=== PATIENT | female | born 1985 | race African-American/Black ===

== ENCOUNTER 2018-12-08 19:04 | Emergency (ER) | payer SELFPAY ==
--- NOTE | 2018-12-08 20:56 | ER ---
Nurse's Notes [facility] Name: Sushma Hastings Age: 33 yrs Sex: Female : 1985 Arrival Date: 12/08/2018 Time: 19:14 Bed 12 Private MD: Diagnosis: Allergic contact dermatitis due to food in contact with the skin Presentation: 12/08 19:24 Presenting complaint: Patient states: she was exposed to some type of "lint" at her mother's house and she developed a rash which ferreira and leaves bumps on her skin. Transition of care: patient was not received from another setting of care. Onset of symptoms was November 28, 2018. Risk Assessment: Do you want to hurt yourself or someone else? Patient reports no desire to harm self or others. Initial Sepsis Screen: Does the patient meet any 2 criteria? No. Patient's initial sepsis screen is negative. Does the patient have a suspected source of infection? No. Patient's initial sepsis screen is negative. Care prior to arrival: None. 19:24 Method Of Arrival: Ambulatory 19:24 Acuity: JEFFY 5 19:28 Note pt states it "feels like their are bugs under my skin". Triage Assessment: 21:14 Bite description: no apparent bite. Bite description: bite is defer to Dr mcleod by an ls4 unknown animal, no apparent bite , animal information: vaccination(s) is not applicable. General: Appears slender, unkempt, Behavior is agitated, anxious, fussy, restless, Reports rash and dry lips. Pain: Denies pain. Neuro: Level of Consciousness is awake, alert, obeys commands. Respiratory: Airway is patent Respiratory effort is even, unlabored. 21:17 Bite description: bite sustained to generalized. 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 - Social history:: Smoking status: Patient uses tobacco products, smokes one-half pack cigarettes per day, Patient/guardian denies using alcohol, street drugs, The patient lives with family. - Ebola Screening: : No symptoms or risks identified at this time. - Family history:: not pertinent. Screenin:13 Abuse screen: Denies threats or abuse. Denies injuries from another. Nutritional ls4 screening: No deficits noted. Tuberculosis screening: No symptoms or risk factors identified. Fall Risk None identified. Assessment: 21:16 Derm: Skin various raised bumps Skin is dry, Skin is pink, warm \\T\\ dry. ls4 Vital Signs: 19:26 BP 144 / 95; Pulse 87; Resp 16 S; Temp 98.4(O); Pulse Ox 100% on R/A; Weight 56.7 kg bb (R); Height 5 ft. 4 in. (162.56 cm) (R); Pain 8/10; 19:26 Body Mass Index 21.46 (56.70 kg, 162.56 cm) bb ED Course: 19:14 Patient arrived in ED. 19:26 Triage completed. 19:26 Arm band placed on Patient placed in waiting room, Patient notified of wait time. 19:52 Nuha Travis, RN is Primary Nurse. ls4 20:00 Patient has correct armband on for positive identification. Placed in gown. Bed in low ls4 position. Call light in reach. Side rails up X 1. 20:00 No provider procedures requiring assistance completed. Patient did not have IV access ls4 during this emergency room visit. 20:08 Chris Loyd MD is Attending Physician. garrick Administered Medications: No medications were administered Outcome: 20:54 Discharge ordered by . maSukumar 21:17 Discharged to home ambulatory, with family. ls4 21:17 Condition: stable 21:17 Discharge instructions given to patient, Instructed on discharge instructions, follow up and referral plans. medication usage, Demonstrated understanding of instructions, follow-up care, medications, Prescriptions given X 1. 21:20 Patient left the ED. ls4 Signatures: Miriam Rodriguez Brenda RN RN Chris Sears MD MD ma2 Stewart, Lisa, RN RN ls4
--- NOTE | 2018-12-08 20:56 | EDPHYS ---
Physician Documentation [facility] Name: Sushma Hastings Age: 33 yrs Sex: Female : 1985 Arrival Date: 12/08/2018 Time: 19:14 Bed 12 Private MD: ED Physician Chris Loyd HPI: 12/08 20:51 This 33 yrs old Black Female presents to ER via Ambulatory with complaints of Rash, ma2 Insect Bite. 20:51 The rash can be described as urticarial. Onset: The symptoms/episode began/occurred ma2 gradually, 2 week(s) ago. Associated signs and symptoms: Pertinent negatives: None. fever, swelling of lips, vomiting. Severity of symptoms: At their worst the symptoms were mild in the emergency department the symptoms are unchanged. Treatment given at home: Benadryl. The patient has experienced similar episodes in the past. 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 - Social history:: Smoking status: Patient uses tobacco products, smokes one-half pack cigarettes per day, Patient/guardian denies using alcohol, street drugs, The patient lives with family. - Ebola Screening: : No symptoms or risks identified at this time. - Family history:: not pertinent. ROS: 20:51 Constitutional: Negative for fever, chills, and weight loss. ma2 20:51 Skin: Positive for itching, Negative for avulsion, cellulitis, discoloration, pallor, swelling. 20:51 All other systems are negative. Exam: 20:51 Constitutional: This is a well developed, well nourished patient who is awake, alert, ma2 and in no acute distress. Chest/axilla: Normal chest wall appearance and motion. Nontender with no deformity. No lesions are appreciated. Cardiovascular: Regular rate and rhythm with a normal S1 and S2. No gallops, murmurs, or rubs. Normal PMI, no JVD. No pulse deficits. Respiratory: Lungs have equal breath sounds bilaterally, clear to auscultation and percussion. No rales, rhonchi or wheezes noted. No increased work of breathing, no retractions or nasal flaring. Abdomen/GI: Soft, non-tender, with normal bowel sounds. No distension or tympany. No guarding or rebound. No evidence of tenderness throughout. Skin: Warm, dry with normal turgor. Normal color with no rashes, no lesions, and no evidence of cellulitis. MS/ Extremity: Pulses equal, no cyanosis. Neurovascular intact. Full, normal range of motion. Neuro: Awake and alert, GCS 15, oriented to person, place, time, and situation. Cranial nerves II-XII grossly intact. Motor strength 5/5 in all extremities. Sensory grossly intact. Cerebellar exam normal. Normal gait. Vital Signs: 19:26 BP 144 / 95; Pulse 87; Resp 16 S; Temp 98.4(O); Pulse Ox 100% on R/A; Weight 56.7 kg bb (R); Height 5 ft. 4 in. (162.56 cm) (R); Pain 8/10; 19:26 Body Mass Index 21.46 (56.70 kg, 162.56 cm) bb MDM: 20:12 Patient medically screened. ma2 20:51 Differential diagnosis: allergic reaction. Data reviewed: vital signs, nurses notes. ma2 Counseling: I had a detailed discussion with the patient and/or guardian regarding: the historical points, exam findings, and any diagnostic results supporting the discharge/admit diagnosis, the presence of at least one elevated blood pressure reading (>120/80) during this emergency department visit, the need for outpatient follow up. Administered Medications: No medications were administered Disposition: 12/08/18 20:54 Discharged to Home. Impression: Allergic contact dermatitis due to food in contact with the skin. - Condition is Stable. - Discharge Instructions: Rash, Rash, [id number]. - Prescriptions for Benadryl 25 mg Oral Capsule - take 1 capsule by ORAL route every 6 hours As needed; 30 tablet. - Medication Reconciliation Form, Thank You Letter, Antibiotic Education, Prescription Opioid Use form. - Follow up: Private Physician; When: Tomorrow; Reason: If symptoms return, Continuance of care. Signatures: Viri Crandall RN RN bb Chris Loyd MD MD ma2 Nuha Travis RN RN ls4 Corrections: (The following items were deleted from the chart) 21:20 20:54 12/08/2018 20:54 Discharged to Home. Impression: Allergic contact dermatitis due ls4 to food in contact with the skin. Condition is Stable. Discharge Instructions: Skin Tear Care. Prescriptions for Benadryl 25 mg Oral Capsule - take 1 capsule by ORAL route every 6 hours As needed; 30 tablet. and Forms are Medication Reconciliation Form, Thank You Letter, Antibiotic Education, Prescription Opioid Use. Follow up: Private Physician; When: Tomorrow; Reason: If symptoms return, Continuance of care. ma2
== END 2018-12-08 21:20 | disposition home or self-care (01) ==
LOC: ER 19:04
DX: L23.6 Allergic contact dermatitis due to food in contact with the skin (principal); F17.210 Nicotine dependence, cigarettes, uncomplicated
CPT/HCPCS: 99282

== ENCOUNTER 2018-12-23 06:10 | Emergency (ER) | payer SELFPAY ==
--- NOTE | 2018-12-23 06:30 | ER ---
Nurse's Notes [facility] Name: Sushma Hastings Age: 33 yrs Sex: Female : 1985 Arrival Date: 12/23/2018 Time: 06:11 Bed 7 Private MD: Diagnosis: Rash and other nonspecific skin eruption Presentation: 12/23 06:20 Presenting complaint: Patient states: for the past couple weeks she has had bugs biting aa1 her and reports she was seen here and instructed to take benadryl but it's not helping. No obvious rash noted at this time. Pt states, "I can feel them get on me and go inside my skin and it hurts.". Transition of care: patient was not received from another setting of care. Onset of symptoms was November 2018. Risk Assessment: Do you want to hurt yourself or someone else? Patient reports no desire to harm self or others. Initial Sepsis Screen: Does the patient meet any 2 criteria? No. Patient's initial sepsis screen is negative. Does the patient have a suspected source of infection? No. Patient's initial sepsis screen is negative. Care prior to arrival: None. 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 - Social history:: Smoking status: Patient uses tobacco products, smokes one pack cigarettes per day. - Ebola Screening: : No symptoms or risks identified at this time. Screenin:20 Abuse screen: Denies threats or abuse. Denies injuries from another. Nutritional aa1 screening: No deficits noted. Tuberculosis screening: No symptoms or risk factors identified. Fall Risk None identified. Assessment: 06:20 General: Appears in no apparent distress. comfortable, Behavior is calm, cooperative, aa1 appropriate for age. Pain: Complains of pain in right arm and left arm Pain currently is 7 out of 10 on a pain scale. Neuro: Level of Consciousness is awake, alert, obeys commands, Oriented to person, place, time, situation, Moves all extremities. Full function Gait is steady, Speech is normal. Respiratory: Airway is patent Respiratory effort is even, unlabored, Respiratory pattern is regular, symmetrical. GI: No signs and/or symptoms were reported involving the gastrointestinal system. : No signs and/or symptoms were reported regarding the genitourinary system. EENT: No signs and/or symptoms were reported regarding the EENT system. Derm: Skin is intact, is healthy with good turgor, Skin is pink, warm \\T\\ dry. Musculoskeletal: Circulation, motion, and sensation intact. Capillary refill < 3 seconds. Vital Signs: 06:20 BP 145 / 98; Pulse 92; Resp 18; Temp 97.2; Pulse Ox 99% on R/A; Weight 59.42 kg; Height aa1 5 ft. 4 in. (162.56 cm); Pain 7/10; 06:20 Body Mass Index 22.49 (59.42 kg, 162.56 cm) aa1 ED Course: 06:11 Patient arrived in ED. es 06:12 [facility]. kb 06:12 William Mojica MD is Attending Physician. kb 06:20 Arm band placed on right wrist. aa1 06:20 Patient has correct armband on for positive identification. Bed in low position. Call aa1 light in reach. Pulse ox on. NIBP on. 06:20 No provider procedures requiring assistance completed. Patient did not have IV access aa1 during this emergency room visit. 06:26 Erica Jha, RN is Primary Nurse. aa1 06:28 Triage completed. aa1 Administered Medications: No medications were administered Outcome: 06:30 Discharge ordered by . kb 06:32 Discharged to home ambulatory. aa1 06:32 Condition: good 06:32 Discharge instructions given to patient, Instructed on discharge instructions, follow up and referral plans. medication usage, Demonstrated understanding of instructions, follow-up care, medications, Prescriptions given X 1. 06:33 Patient left the ED. aa1 Signatures: Jaimie James FNP-C FNP-Erica Pereyra RN RN aa1 Miriam Rodriguez es
--- NOTE | 2018-12-23 06:30 | EDPHYS ---
Physician Documentation [facility] Name: Sushma Hastings Age: 33 yrs Sex: Female : 1985 Arrival Date: 12/23/2018 Time: 06:11 Bed 7 Private MD: ED Physician William Mojica HPI: 12/23 06:23 This 33 yrs old Black Female presents to ER via Unassigned with complaints of bug bites.kb 06:23 The patient's rash thought to be caused by "lint bugs". The rash is located on the body kb diffusely. Onset: The symptoms/episode began/occurred 2 week(s) ago. Associated signs and symptoms: Pertinent positives: burning sensation, difficulty breathing, fever, nausea, swelling of lips, swelling of throat, swelling of tongue, vomiting, wheezing, Pertinent negatives: itching, Pain. Severity of symptoms: At their worst the symptoms were moderate in the emergency department the symptoms are unchanged. The patient has not experienced similar symptoms in the past. The patient has been recently seen at the [facility] Emergency Department, a couple of weeks ago. Pt reports she has had little "lint bugs" biting her. States they get on her and bury into her skin. States she has pain and itching from that. Brought some "bugs" in a plastic bag as proof because they didn't believe her last time she came. Appears to be lint inside of bag. . 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 - Social history:: Smoking status: Patient uses tobacco products, smokes one pack cigarettes per day. - Ebola Screening: : No symptoms or risks identified at this time. ROS: 06:22 Constitutional: Negative for fever, chills, and weight loss, ENT: Negative for injury, kb pain, and discharge, Neck: Negative for injury, pain, and swelling, Cardiovascular: Negative for chest pain, palpitations, and edema, Respiratory: Negative for shortness of breath, cough, wheezing, and pleuritic chest pain, Abdomen/GI: Negative for abdominal pain, nausea, vomiting, diarrhea, and constipation, Back: Negative for injury and pain, MS/Extremity: Negative for injury and deformity, Skin: Negative for injury, rash, and discoloration, Neuro: Negative for headache, weakness, numbness, tingling, and seizure. Exam: 06:22 Constitutional: This is a well developed, well nourished patient who is awake, alert, kb and in no acute distress. Head/Face: Normocephalic, atraumatic. ENT: Nares patent. No nasal discharge, no septal abnormalities noted. Tympanic membranes are normal and external auditory canals are clear. Oropharynx with no redness, swelling, or masses, exudates, or evidence of obstruction, uvula midline. Mucous membranes moist. Neck: Trachea midline, no thyromegaly or masses palpated, and no cervical lymphadenopathy. Supple, full range of motion without nuchal rigidity, or vertebral point tenderness. No Meningismus. Chest/axilla: Normal chest wall appearance and motion. Nontender with no deformity. No lesions are appreciated. Cardiovascular: Regular rate and rhythm with a normal S1 and S2. No gallops, murmurs, or rubs. Normal PMI, no JVD. No pulse deficits. Respiratory: Lungs have equal breath sounds bilaterally, clear to auscultation and percussion. No rales, rhonchi or wheezes noted. No increased work of breathing, no retractions or nasal flaring. Abdomen/GI: Soft, non-tender, with normal bowel sounds. No distension or tympany. No guarding or rebound. No evidence of tenderness throughout. Skin: Warm, dry with normal turgor. Normal color with no rashes, no lesions, and no evidence of cellulitis. MS/ Extremity: Pulses equal, no cyanosis. Neurovascular intact. Full, normal range of motion. Neuro: Awake and alert, GCS 15, oriented to person, place, time, and situation. Cranial nerves II-XII grossly intact. Motor strength 5/5 in all extremities. Sensory grossly intact. Cerebellar exam normal. Normal gait. Vital Signs: 06:20 BP 145 / 98; Pulse 92; Resp 18; Temp 97.2; Pulse Ox 99% on R/A; Weight 59.42 kg; Height aa1 5 ft. 4 in. (162.56 cm); Pain 7/10; 06:20 Body Mass Index 22.49 (59.42 kg, 162.56 cm) aa1 MDM: 06:12 Patient medically screened. kb 06:23 Data reviewed: vital signs, nurses notes. Data interpreted: Pulse oximetry: on room air kb is 100 %. Interpretation: normal. Counseling: I had a detailed discussion with the patient and/or guardian regarding: the historical points, exam findings, and any diagnostic results supporting the discharge/admit diagnosis, the need for outpatient follow up, a family practitioner, to return to the emergency department if symptoms worsen or persist or if there are any questions or concerns that arise at home. Administered Medications: No medications were administered Disposition: 12/23/18 06:30 Discharged to Home. Impression: Rash and other nonspecific skin eruption. - Condition is Stable. - Discharge Instructions: Insect Bite, [id number], Rash, [id number], Scabies, Adult. - Prescriptions for Elimite 5 % Topical Cream - apply 1 application by TOPICAL route one time Wash after 12 hours.; 60 gram. - Medication Reconciliation Form, Thank You Letter, Antibiotic Education, Prescription Opioid Use form. - Work release form (12/23/18 08:21). kb - Follow up: Emergency Department; When: As needed; Reason: Worsening of condition. Follow up: Private Physician; When: 2 - 3 days; Reason: Recheck today's complaints, Continuance of care, Re-evaluation by your physician. Addendum: 12/24/2018 11:10 Co-signature as Attending Physician, William Mojica MD I agree with the assessment and c aguilar plan of care. Signatures: Jaimie James FNP-C FNP-Erica Pereyra, RN RN aa1 William Mojica MD MD cha Corrections: (The following items were deleted from the chart) 12/23 06:33 06:30 12/23/2018 06:30 Discharged to Home. Impression: Rash and other nonspecific skin aa1 eruption. Condition is Stable. Forms are Medication Reconciliation Form, Thank You Letter, Antibiotic Education, Prescription Opioid Use. Follow up: Emergency Department; When: As needed; Reason: Worsening of condition. Follow up: Private Physician; When: 2 - 3 days; Reason: Recheck today's complaints, Continuance of care, Re-evaluation by your physician. kb
== END 2018-12-23 06:33 | disposition home or self-care (01) ==
LOC: ER 06:10
DX: R21 Rash and other nonspecific skin eruption (principal); F17.210 Nicotine dependence, cigarettes, uncomplicated
CPT/HCPCS: 99283

== ENCOUNTER 2019-03-28 23:32 | Emergency (ER) | payer SELFPAY ==
[2019-03-29] MEDS ORDERED: LEVETIRACETAM 500 MG/5 ML VIAL IV ONE (00:12)
[2019-03-29] MEDS ORDERED: NA CHLORIDE 0.9% 100 ML IV ONE (00:12)
--- NOTE | 2019-03-29 00:35 | EDPHYS ---
Physician Documentation [facility] Name: Sushma Hastings Age: 34 yrs Sex: Female : 1985 Arrival Date: 03/28/2019 Time: 23:35 Bed 3 Private MD: ED Physician Todd Delgado HPI: 03/29 00:03 This 34 yrs old Black Female presents to ER via EMS with complaints of Seizure. ps1 00:03 patient has a history of seizure and reportedly on Keppra. Stopped taking the ps1 medication because she states that she was doing well and thought she was cured. Hasn't taken the medication in months. Patient was BIBEMS for reported seizure and now post ictal. On my evaluation she was AOx3 and appears somnolent but alert. . Historical: - Allergies: 03/28 23:39 No Known Allergies; tl2 - Home Meds: 23:39 unknown seizure med [Active]; tl2 - PMHx: 23:39 Hypertension; Seizures; Glaucoma; tl2 - Immunization history:: Adult Immunizations up to date. - Social history:: Smoking status: Patient uses tobacco products, smokes one-half pack cigarettes per day. - Ebola Screening: : No symptoms or risks identified at this time. ROS: 03/29 00:03 Constitutional: Negative for fever, chills, and weight loss, Eyes: Negative for injury, ps1 pain, redness, and discharge, ENT: Negative for injury, pain, and discharge, Cardiovascular: Negative for chest pain, palpitations, and edema, Respiratory: Negative for shortness of breath, cough, wheezing, and pleuritic chest pain, Abdomen/GI: Negative for abdominal pain, nausea, vomiting, diarrhea, and constipation, MS/Extremity: Negative for injury and deformity, Skin: Negative for injury, rash, and discoloration. Neuro: Positive for seizure activity. Exam: 00:03 Constitutional: This is a well developed, well nourished patient who is awake, alert, ps1 and in no acute distress. Head/Face: Normocephalic, atraumatic. Eyes: Pupils equal round and reactive to light, extra-ocular motions intact. Lids and lashes normal. Conjunctiva and sclera are non-icteric and not injected. Chest/axilla: Normal chest wall appearance and motion. Nontender with no deformity. No lesions are appreciated. Cardiovascular: Regular rate and rhythm. No gallops, murmurs, or rubs. Normal PMI, no JVD. No pulse deficits. Respiratory: Lungs have equal breath sounds bilaterally, clear to auscultation and percussion. No rales, rhonchi or wheezes noted. No increased work of breathing, no retractions or nasal flaring. Abdomen/GI: Soft, non-tender, with normal bowel sounds. No distension or tympany. No guarding or rebound. No evidence of tenderness throughout. MS/ Extremity: Pulses equal, no cyanosis. Neurovascular intact. Full, normal range of motion. Neuro: Awake and alert, GCS 15, oriented to person, place, time, and situation. Cranial nerves II-XII grossly intact. Sensory grossly intact. Psych: Awake, alert, with orientation to person, place and time. Behavior, mood, and affect are within normal limits. Vital Signs: 03/28 23:39 BP 132 / 95; Pulse 88; Resp 18; Temp 98.5(O); Pulse Ox 98% on R/A; Weight 65.77 kg; tl2 Height 5 ft. 6 in. (167.64 cm); Pain 0/10; 03/29 00:54 BP 102 / 64; Pulse 81; Resp 17; Temp 98.3; Pulse Ox 97% ; rv 03/28 23:39 Body Mass Index 23.40 (65.77 kg, 167.64 cm) tl2 [place] Coma Score: 03/28 23:39 Eye Response: spontaneous(4). Verbal Response: oriented(5). Motor Response: obeys tl2 commands(6). Total: 15. MDM: 23:55 Patient medically screened. ps1 03/29 00:35 Data reviewed: vital signs, nurses notes, and as a result, I will discharge patient. ps1 Counseling: I had a detailed discussion with the patient and/or guardian regarding: the historical points, exam findings, and any diagnostic results supporting the discharge/admit diagnosis, the need for outpatient follow up, to return to the emergency department if symptoms worsen or persist or if there are any questions or concerns that arise at home. Administered Medications: 00:03 Drug: Keppra 1000 mg Route: IV; Rate: bolus; Site: left antecubital; aa1 00:54 Follow up: IV Status: Completed infusion; IV Intake: 100ml rv Disposition: 03/29/19 00:34 Discharged to Home. Impression: Recurrent Seizure. - Condition is Stable. - Discharge Instructions: Seizure, Adult. - Prescriptions for Keppra 500 mg Oral Tablet - take 1 tablet by ORAL route every 12 hours; 60 tablet. - Medication Reconciliation Form, Thank You Letter, Antibiotic Education, Prescription Opioid Use form. - Follow up: Private Physician; When: As needed; Reason: Further diagnostic work-up, Recheck today's complaints, Continuance of care, Re-evaluation by your physician. Follow up: Emergency Department; When: As needed; Reason: Worsening of condition. - Problem is an ongoing problem. - Symptoms have improved. Signatures: Erica Talbert RN RN aa1 Miranda Ardon RN RN tl2 Todd Delgado MD MD ps1 Nilesh Weaver RN RN rv Corrections: (The following items were deleted from the chart) 00:55 00:34 03/29/2019 00:34 Discharged to Home. Impression: Recurrent Seizure. Condition is rv Stable. Forms are Medication Reconciliation Form, Thank You Letter, Antibiotic Education, Prescription Opioid Use. Follow up: Private Physician; When: As needed; Reason: Further diagnostic work-up, Recheck today's complaints, Continuance of care, Re-evaluation by your physician. Follow up: Emergency Department; When: As needed; Reason: Worsening of condition. Problem is an ongoing problem. Symptoms have improved. ps1
--- NOTE | 2019-03-29 00:35 | ER ---
Nurse's Notes [facility] Name: Sushma Hastings Age: 34 yrs Sex: Female : 1985 Arrival Date: 03/28/2019 Time: 23:35 Bed 3 Private MD: Diagnosis: Recurrent Seizure Presentation: 03/28 23:36 Presenting complaint: EMS states: Witnessed seizure, twitching in L shoulder, no LOC. tl2 Pt was confused but remained AOx3 post seizure. EMS gave 2 mg ativan, pt became AOx4 and more alert. Pt is awake but drowsy, AOx4 but slow to answer. Transition of care: patient was not received from another setting of care. Onset of symptoms was March 28, 2019 at 23:00. Risk Assessment: Do you want to hurt yourself or someone else? Patient reports no desire to harm self or others. Initial Sepsis Screen: Does the patient meet any 2 criteria? No. Patient's initial sepsis screen is negative. Does the patient have a suspected source of infection? No. Patient's initial sepsis screen is negative. Care prior to arrival: Medication(s) given: 2 mg Ativan IVP IV initiated. 20 GA, in the left antecubital area, Glucose check: 202. 23:36 Method Of Arrival: EMS: [facility] tl2 23:36 Acuity: JEFFY 2 tl2 Triage Assessment: 23:39 General: Appears in no apparent distress. Behavior is cooperative, appropriate for age, tl2 drowsy. 23:39 Pain: Denies pain. Neuro: Level of Consciousness is awake, obeys commands, Oriented to tl2 person, place, time, situation. Historical: - Allergies: 23:39 No Known Allergies; tl2 - Home Meds: 23:39 unknown seizure med [Active]; tl2 - PMHx: 23:39 Hypertension; Seizures; Glaucoma; tl2 - Immunization history:: Adult Immunizations up to date. - Social history:: Smoking status: Patient uses tobacco products, smokes one-half pack cigarettes per day. - Ebola Screening: : No symptoms or risks identified at this time. Screenin:40 Abuse screen: Denies threats or abuse. Nutritional screening: No deficits noted. tl2 Tuberculosis screening: No symptoms or risk factors identified. Fall Risk IV access (20 points). Gait- Weak (10 pts.). Assessment: 23:45 General: Appears in no apparent distress. comfortable, Behavior is calm, cooperative, aa1 appropriate for age. Pain: Denies pain. Neuro: Level of Consciousness is awake, alert, obeys commands, Oriented to person, place, time, situation, Speech is normal, Facial symmetry appears normal, Pupils are PERRLA. Cardiovascular: Heart tones S1 S2 present. Respiratory: Airway is patent Respiratory effort is even, unlabored, Respiratory pattern is regular, symmetrical. GI: No signs and/or symptoms were reported involving the gastrointestinal system. : No signs and/or symptoms were reported regarding the genitourinary system. EENT: No signs and/or symptoms were reported regarding the EENT system. Derm: Skin is intact, is healthy with good turgor, Skin is pink, warm \T\ dry. Musculoskeletal: Circulation, motion, and sensation intact. Capillary refill < 3 seconds. 03/29 00:03 Reassessment: Patient appears in no apparent distress at this time. Patient and/or aa1 family updated on plan of care and expected duration. Pain level reassessed. Patient is alert, oriented x 3, equal unlabored respirations, skin warm/dry/pink. Keppra infusing. Vital Signs: 03/28 23:39 BP 132 / 95; Pulse 88; Resp 18; Temp 98.5(O); Pulse Ox 98% on R/A; Weight 65.77 kg; tl2 Height 5 ft. 6 in. (167.64 cm); Pain 0/10; 03/29 00:54 BP 102 / 64; Pulse 81; Resp 17; Temp 98.3; Pulse Ox 97% ; rv 03/28 23:39 Body Mass Index 23.40 (65.77 kg, 167.64 cm) tl2 Valeri Coma Score: 03/28 23:39 Eye Response: spontaneous(4). Verbal Response: oriented(5). Motor Response: obeys tl2 commands(6). Total: 15. ED Course: 23:35 Patient arrived in ED. am2 23:37 Todd Delgado MD is Attending Physician. ps1 23:39 Triage completed. tl2 23:39 Arm band placed on right wrist. tl2 23:40 Erica Talbert RN is Primary Nurse. aa1 23:40 Patient has correct armband on for positive identification. Bed in low position. Call tl2 light in reach. Side rails up X2. 23:40 Maintain EMS IV. Dressing intact. Good blood return noted. Site clean \T\ dry. Gauge \T\ tl 2 site: 20 g L AC. 06 00:54 No provider procedures requiring assistance completed. IV discontinued, intact, rv bleeding controlled, No redness/swelling at site. Pressure dressing applied. 00:55 Seizure precautions initiated. rv Administered Medications: 00:03 Drug: Keppra 1000 mg Route: IV; Rate: bolus; Site: left antecubital; aa1 00:54 Follow up: IV Status: Completed infusion; IV Intake: 100ml rv Intake: 00:54 IV: 100ml; Total: 100ml. rv Outcome: 00:34 Discharge ordered by . ps1 00:55 Discharged to home ambulatory. rv 00:55 Condition: good 00:55 Discharge instructions given to patient, Instructed on discharge instructions, follow up and referral plans. medication usage, Demonstrated understanding of instructions, follow-up care, medications, Prescriptions given X 1. 00:55 Patient left the ED. rv Signatures: Erica Talbert RN RN aa1 Miranda Ardon RN RN tl2 Ange Albarran am2 Todd Delgado MD MD ps1 Nilesh Weaver RN RN rv
== END 2019-03-29 00:55 | disposition home or self-care (01) ==
LOC: ER 23:32
DX: G40.802 Other epilepsy, not intractable, without status epilepticus (principal); I10 Essential (primary) hypertension; F17.210 Nicotine dependence, cigarettes, uncomplicated
CPT/HCPCS: 96365; 99283; J1953

== ENCOUNTER 2020-09-15 15:37 | Emergency (ER) | payer SELFPAY ==
--- NOTE | 2020-09-15 17:00 | ER ---
Nurse's Notes [facility] Name: Sushma Hastings Age: 35 yrs Sex: Female : 1985 Arrival Date: 09/15/2020 Time: 15:43 Bed 4 Private MD: Diagnosis: Fracture of unspecified part of left clavicle Presentation: 09/15 15:43 Chief complaint: EMS states: was playing football this morning around 0630 with her sv family and injured her left shoulder/clavicle area. Coronavirus screen: Client denies travel out of the [place] in the last 14 days. At this time, the client does not indicate any symptoms associated with coronavirus-19. Ebola Screen: No symptoms or risks identified at this time. Initial Sepsis Screen: Does the patient meet any 2 criteria? No. Patient's initial sepsis screen is negative. Does the patient have a suspected source of infection? No. Patient's initial sepsis screen is negative. Risk Assessment: Do you want to hurt yourself or someone else? Patient reports no desire to harm self or others. Onset of symptoms was September 15, 2020. Care prior to arrival: Medication(s) given: Ketamine 13 mg IVP given. 15:43 Method Of Arrival: EMS: [facility] sv 15:43 Acuity: JEFFY 4 sv Triage Assessment: 15:46 General: Appears in no apparent distress. uncomfortable, slender, well developed, sv Behavior is calm, cooperative, appropriate for age. Pain: Complains of pain in left clavicle and anterior aspect of left shoulder. Neuro: Level of Consciousness is awake, alert, obeys commands, Oriented to person, place, time, situation, Moves all extremities. Respiratory: Respiratory effort is even, unlabored, Respiratory pattern is regular, symmetrical. Derm: Skin is pink, warm \T\ dry. Musculoskeletal: Range of motion: limited in left shoulder. Historical: - Allergies: 15:45 No Known Allergies; sv - PMHx: 15:45 Glaucoma; Hypertension; Seizures; sv - Immunization history:: Adult Immunizations up to date. - Social history:: Smoking status: Patient/guardian denies using alcohol, street drugs, The patient lives with family. - Family history:: not pertinent. Screenin:46 Abuse screen: Denies threats or abuse. Denies injuries from another. Nutritional sv screening: No deficits noted. Tuberculosis screening: No symptoms or risk factors identified. Fall Risk None identified. Assessment: 15:42 Reassessment: Ok by Dr Loyd to place an arm sling. sv 16:45 Reassessment: Patient appears in no apparent distress at this time. No changes from sv previously documented assessment. Patient and/or family updated on plan of care and expected duration. Pain level reassessed. Patient is alert, oriented x 3, equal unlabored respirations, skin warm/dry/pink. Informed Dr Loyd pt c/o pain. Medication order received. 17:18 Reassessment: Patient appears in no apparent distress at this time. Patient and/or sv family updated on plan of care and expected duration. Pain level reassessed. Patient is alert, oriented x 3, equal unlabored respirations, skin warm/dry/pink. Patient states feeling better. Patient states symptoms have improved. Vital Signs: 15:43 BP 101 / 85; Pulse 84; Resp 16; Temp 97.8; Pulse Ox 100% ; sv 16:30 BP 113 / 70; Pulse 85; Resp 14; Pulse Ox 100% ; sv ED Course: 15:43 Patient arrived in ED. sv 15:43 Arline Vaughn, RN is Primary Nurse. sv 15:43 Chris Loyd MD is Attending Physician. ma2 15:44 Triage completed. sv 15:44 Arm band placed on. sv 15:45 Sling applied to left arm. sv 15:46 Patient has correct armband on for positive identification. Bed in low position. Call sv light in reach. Side rails up X 1. Pulse ox on. NIBP on. Door closed. Warm blanket given. Head of bed elevated. 15:48 Awaiting for x-ray. sv 15:54 Awaiting radiology results. sv 15:54 X-ray(s) taken. sv 16:02 Chest Single View XRAY In Process Unspecified. EDMS 16:02 Clavicle Left XRAY In Process Unspecified. EDMS 17:18 No provider procedures requiring assistance completed. IV discontinued, intact, sv bleeding controlled, No redness/swelling at site. Pressure dressing applied. Administered Medications: 16:50 Drug: Zofran (Ondansetron) 4 mg Route: IVP; Site: right antecubital; sv 17:18 Follow up: Response: No adverse reaction sv 16:52 Drug: morphine 4 mg {Note: rass1.} Route: IVP; Site: right antecubital; sv 17:19 Follow up: Response: No adverse reaction; Marked relief of symptoms; Pain is decreased; sv RASS: Alert and Calm (0) Outcome: 17:00 Discharge ordered by . garrick 17:18 Discharged to home ambulatory, with family. sv 17:18 Condition: stable 17:18 Discharge instructions given to patient, Instructed on discharge instructions, follow up and referral plans. medication usage, Demonstrated understanding of instructions, follow-up care, medications, Prescriptions given X 1. 17:19 Patient left the ED. sv Signatures: Dispatcher [employer] Arline Tapia RN RN sv Alzahri, Mohammad, MD MD ma2
--- NOTE | 2020-09-15 17:00 | EDPHYS ---
Physician Documentation [facility] Name: Sushma Hastings Age: 35 yrs Sex: Female : 1985 Arrival Date: 09/15/2020 Time: 15:43 Bed 4 Private MD: ED Physician Chris Loyd HPI: 09/15 16:58 This 35 yrs old Black Female presents to ER via EMS with complaints of Shoulder Injury. ma2 16:58 The patient or guardian complains of deformity, an injury. Onset: The symptoms/episode ma2 began/occurred suddenly, 2 hour(s) ago. Associated signs and symptoms: Pertinent negatives: diaphoresis, dyspnea, neck pain, shortness of breath, tingling. Severity of symptoms: At their worst the symptoms were moderate, in the emergency department the symptoms are unchanged. The patient has not experienced similar symptoms in the past. Historical: - Allergies: 15:45 No Known Allergies; sv - PMHx: 15:45 Glaucoma; Hypertension; Seizures; sv - Immunization history:: Adult Immunizations up to date. - Social history:: Smoking status: Patient/guardian denies using alcohol, street drugs, The patient lives with family. - Family history:: not pertinent. ROS: 16:58 Constitutional: Negative for fever, chills, and weight loss. ma2 16:58 All other systems are negative. Exam: 16:58 Constitutional: This is a well developed, well nourished patient who is awake, alert, ma2 and in no acute distress. Head/Face: Normocephalic, atraumatic. Eyes: Pupils equal round and reactive to light, extra-ocular motions intact. Lids and lashes normal. Conjunctiva and sclera are non-icteric and not injected. Cornea within normal limits. Periorbital areas with no swelling, redness, or edema. ENT: Nares patent. No nasal discharge, no septal abnormalities noted. Tympanic membranes are normal and external auditory canals are clear. Oropharynx with no redness, swelling, or masses, exudates, or evidence of obstruction, uvula midline. Mucous membranes moist. Neck: Trachea midline, no thyromegaly or masses palpated, and no cervical lymphadenopathy. Supple, full range of motion without nuchal rigidity, or vertebral point tenderness. No Meningismus. Chest/axilla: left clavicle tttp over mid, no skin tethering, n owounds, Normal chest wall appearance and motion. Nontender with no deformity. No lesions are appreciated. Cardiovascular: Regular rate and rhythm with a normal S1 and S2. No gallops, murmurs, or rubs. Normal PMI, no JVD. No pulse deficits. Respiratory: Lungs have equal breath sounds bilaterally, clear to auscultation and percussion. No rales, rhonchi or wheezes noted. No increased work of breathing, no retractions or nasal flaring. Abdomen/GI: Soft, non-tender, with normal bowel sounds. No distension or tympany. No guarding or rebound. No evidence of tenderness throughout. Skin: Warm, dry with normal turgor. Normal color with no rashes, no lesions, and no evidence of cellulitis. MS/ Extremity: Pulses equal, no cyanosis. Neurovascular intact. Full, normal range of motion. Neuro: Awake and alert, GCS 15, oriented to person, place, time, and situation. Cranial nerves II-XII grossly intact. Motor strength 5/5 in all extremities. Sensory grossly intact. Cerebellar exam normal. Normal gait. Vital Signs: 15:43 BP 101 / 85; Pulse 84; Resp 16; Temp 97.8; Pulse Ox 100% ; sv 16:30 BP 113 / 70; Pulse 85; Resp 14; Pulse Ox 100% ; sv MDM: 15:43 Patient medically screened. ma2 16:58 Differential diagnosis: humeral head fracture, glenoid fracture, DJD, tendonitis. Data ma2 reviewed: vital signs, nurses notes. Counseling: I had a detailed discussion with the patient and/or guardian regarding: the historical points, exam findings, and any diagnostic results supporting the discharge/admit diagnosis, the presence of at least one elevated blood pressure reading (>120/80) during this emergency department visit, the need for outpatient follow up. Response to treatment: the patient's symptoms have markedly improved after treatment. 09/15 15:44 Order name: Chest Single View XRAY ri2 09/15 15:44 Order name: Clavicle Left XRAY ma2 09/15 15:44 Order name: Sling; Complete Time: 15:47 ma2 Administered Medications: 16:50 Drug: Zofran (Ondansetron) 4 mg Route: IVP; Site: right antecubital; sv 17:18 Follow up: Response: No adverse reaction sv 16:52 Drug: morphine 4 mg {Note: rass1.} Route: IVP; Site: right antecubital; sv 17:19 Follow up: Response: No adverse reaction; Marked relief of symptoms; Pain is decreased; sv RASS: Alert and Calm (0) Disposition: 09/15/20 17:00 Discharged to Home. Impression: Fracture of unspecified part of left clavicle. - Condition is Stable. - Discharge Instructions: Clavicle Fracture, [id number]. - Prescriptions for Diclofenac Sodium 75 mg Oral Tablet Sustained Release - take 1 tablet by ORAL route 2 times per day; 30 tablet. - Medication Reconciliation Form, Thank You Letter, Antibiotic Education, Prescription Opioid Use form. - Follow up: Private Physician; When: Tomorrow; Reason: Continuance of care. Signatures: Dispatcher [employer] Arline Tapia RN RN sv Alzahri, Mohammad, MD MD ma2 Corrections: (The following items were deleted from the chart) 17: 17:00 09/15/2020 17:00 Discharged to Home. Impression: Fracture of unspecified part of sv left clavicle. Condition is Stable. Forms are Medication Reconciliation Form, Thank You Letter, Antibiotic Education, Prescription Opioid Use. Follow up: Private Physician; When: Tomorrow; Reason: Continuance of care. ma2
[2020-09-15] MEDS ORDERED: ONDANSETRON 4 MG/2 ML VIAL ONE (17:01)
[2020-09-15] MEDS ORDERED: MORPHINE 4 MG/ML SYR ONE (17:01)
--- NOTE | 2020-09-15 17:20 | RAD REPORT ---
EXAM DESCRIPTION: [place] Single View09/15/2020 4:02 pm CLINICAL HISTORY: Chest pain COMPARISON: none FINDINGS: The lungs appear clear of acute infiltrate. The heart is normal size . Fracture proximal to mid left clavicle with moderate distraction of the fracture fragments
--- NOTE | 2020-09-15 17:21 | RAD REPORT ---
EXAM DESCRIPTION: RAD - Clavicle Left - 09/15/2020 4:02 pm CLINICAL HISTORY: Left shoulder pain FINDINGS: Fracture proximal to mid left clavicle with moderate distraction of the fracture fragments No dislocation
[2020-09-15 20:08] VITALS: TEMP 97.8; O2SAT 100
[2020-09-15 20:11] VITALS: BP 113/70
== END 2020-09-15 17:19 | disposition home or self-care (01) ==
LOC: ER 15:37
DX: S42.012A Anterior displaced fracture of sternal end of left clavicle, initial encounter for closed fracture (principal); X58.XXXA Exposure to other specified factors, initial encounter; Y93.61 Activity, american tackle football; Y92.9 Unspecified place or not applicable; I10 Essential (primary) hypertension
CPT/HCPCS: 71045; 96374; 96375; 99284; J2405

== ENCOUNTER 2020-09-26 12:58 | Emergency (ER) | payer OTHER, SELFPAY ==
[2020-09-26] MEDS ORDERED: HYDROCODONE/APAP 5/325 MG TAB ONE (14:30)
--- NOTE | 2020-09-26 15:08 | ER ---
Nurse's Notes [facility] Name: Sushma Hastings Age: 35 yrs Sex: Female : 1985 Arrival Date: 09/26/2020 Time: 13:02 Bed 25 Private MD: Diagnosis: Fracture of clavicle Presentation: 09/26 13:02 Chief complaint: EMS states: pt had previous fractured her left collarbone on zb thanksgiving, today pt was arrested and reinstatement clerk attempted to place her and behind her back, pt expressed pain and discomfort. Coronavirus screen: At this time, the client does not indicate any symptoms associated with coronavirus-19. Ebola Screen: No symptoms or risks identified at this time. Initial Sepsis Screen: Does the patient meet any 2 criteria? No. Patient's initial sepsis screen is negative. Does the patient have a suspected source of infection? No. Patient's initial sepsis screen is negative. Risk Assessment: Do you want to hurt yourself or someone else? Patient reports no desire to harm self or others. Onset of symptoms was September 26, 2020. 13:02 Method Of Arrival: EMS: [facility] zb 13:02 Acuity: JEFFY 3 zb Triage Assessment: 13:09 General: Appears in no apparent distress. uncomfortable, Behavior is cooperative, zb anxious, crying. Pain: Complains of pain in left supraclavicular area and left clavicle, let shoulder Pain radiates to radiate to left neck Pain currently is 10 out of 10 on a pain scale. Quality of pain is described as aching, sharp, Pain began suddenly. EENT: No signs and/or symptoms were reported regarding the EENT system. Neuro: Level of Consciousness is awake, alert, obeys commands, Oriented to person, place, time, situation. Cardiovascular: Capillary refill < 3 seconds in bilateral fingers Patient's skin is warm and dry. Respiratory: Airway is patent Trachea midline Respiratory effort is even, unlabored, Respiratory pattern is regular. GI: No signs and/or symptoms were reported involving the gastrointestinal system. Abdomen is flat, non-distended. : No signs and/or symptoms were reported regarding the genitourinary system. Derm: Skin is intact, is healthy with good turgor. Musculoskeletal: Capillary refill < 3 seconds, in bilateral Range of motion: limited in left shoulder. Injury Description: Swelling noted to left clavicle. Historical: - Allergies: 13:08 Ibuprofen; zb - Home Meds: 13:08 unknown seizure med [Active]; zb - PMHx: 13:08 Glaucoma; Hypertension; Seizures; zb - Immunization history:: Adult Immunizations up to date. - Social history:: Smoking status: unknown. Screenin:56 Abuse screen: Denies threats or abuse. Denies injuries from another. Nutritional zb screening: No deficits noted. Tuberculosis screening: No symptoms or risk factors identified. Fall Risk None identified. Vital Signs: 13:02 BP 140 / 78; Pulse 90; Resp 18; Temp 98.4; Pulse Ox 100% on R/A; Weight 68.04 kg; zb Height 5 ft. 4 in. (162.56 cm); Pain 10/10; 14:58 BP 138 / 80; Pulse 88; Resp 16; Pulse Ox 100% on R/A; zb 13:02 Body Mass Index 25.75 (68.04 kg, 162.56 cm) zb ED Course: 13:02 Patient arrived in ED. zb 13:06 [facility]C [facility]. kb 13:06 Giancarlo Quintana MD is Attending Physician. kb 13:07 Triage completed. zb 13:56 Phylicia Spence, RN is Primary Nurse. zb 14:57 Arm band placed on right wrist. zb 14:57 Patient did not have IV access during this emergency room visit. zb 14:57 No provider procedures requiring assistance completed. zb 14:58 Patient has correct armband on for positive identification. Door closed. Noise zb minimized. Warm blanket given. Administered Medications: 14:17 Drug: Bradford 5 mg-325 mg 1 tabs Route: PO; zb 14:56 Follow up: Response: No adverse reaction zb Outcome: 14:32 Discharge ordered by . kb 14:57 Discharged to home via wheelchair. zb 14:57 Condition: stable 14:57 Discharge instructions given to patient, Instructed on discharge instructions, follow up and referral plans. medication usage, Demonstrated understanding of instructions, follow-up care, medications, Prescriptions given X 1. 15:00 Patient left the ED. zb Signatures: Jaimie James FNP-C FNP-Ckb Phylicia Spence, RN RN zb
--- NOTE | 2020-09-26 15:08 | EDPHYS ---
Physician Documentation [facility] Name: Sushma Hastings Age: 35 yrs Sex: Female : 1985 Arrival Date: 09/26/2020 Time: 13:02 Bed 25 Private MD: ED Physician Giancarlo Quintana HPI: 09/26 15:02 This 35 yrs old Black Female presents to ER via EMS with complaints of shoulder pain. kb 15:02 The patient or guardian complains of decreased range of motion, injury, pain, swelling, kb tenderness. The complaints affect the left clavicle. Context: The problem was sustained at home, resulted from arm being pulled to back for handcuffs. Onset: The symptoms/episode began/occurred just prior to arrival. Treatment prior to arrival includes: no previous treatment. Modifying factors: The symptoms are alleviated by nothing. the symptoms are aggravated by movement. Associated signs and symptoms: Pertinent positives: decreased range of motion, pain, swelling. Severity of symptoms: At their worst the symptoms were moderate, in the emergency department the symptoms are unchanged. The patient has not experienced similar symptoms in the past. The patient has been recently seen by a physician:. Pt reports she was diagnosed with a clavicle fracture on . States the bicycle designer came to arrest her today and when they pulled her arm to her back to handcuff her it hurt her shoulder. Historical: - Allergies: 13:08 Ibuprofen; zb - Home Meds: 13:08 unknown seizure med [Active]; zb - PMHx: 13:08 Glaucoma; Hypertension; Seizures; zb - Immunization history:: Adult Immunizations up to date. - Social history:: Smoking status: unknown. ROS: 15:00 Constitutional: Negative for fever, chills, and weight loss, Cardiovascular: Negative kb for chest pain, palpitations, and edema, Respiratory: Negative for shortness of breath, cough, wheezing, and pleuritic chest pain, Abdomen/GI: Negative for abdominal pain, nausea, vomiting, diarrhea, and constipation, Neuro: Negative for headache, weakness, numbness, tingling, and seizure. 15:00 MS/extremity: Positive for injury or acute deformity, decreased range of motion, pain, swelling, tenderness, of the left clavicle and left arm and left shoulder. Exam: 15:00 Constitutional: This is a well developed, well nourished patient who is awake, alert, kb and in no acute distress. Head/Face: Normocephalic, atraumatic. Cardiovascular: Regular rate and rhythm with a normal S1 and S2. No gallops, murmurs, or rubs. Normal PMI, no JVD. No pulse deficits. Respiratory: Lungs have equal breath sounds bilaterally, clear to auscultation and percussion. No rales, rhonchi or wheezes noted. No increased work of breathing, no retractions or nasal flaring. Abdomen/GI: Soft, non-tender, with normal bowel sounds. No distension or tympany. No guarding or rebound. No evidence of tenderness throughout. Neuro: Awake and alert, GCS 15, oriented to person, place, time, and situation. Cranial nerves II-XII grossly intact. Motor strength 5/5 in all extremities. Sensory grossly intact. Cerebellar exam normal. Normal gait. 15:00 Musculoskeletal/extremity: Extremities: grossly normal except: noted in the left clavicle: decreased ROM, pain, swelling, ROM: limited active range of motion due to pain, Circulation is intact in all extremities. Sensation intact. Vital Signs: 13:02 BP 140 / 78; Pulse 90; Resp 18; Temp 98.4; Pulse Ox 100% on R/A; Weight 68.04 kg; zb Height 5 ft. 4 in. (162.56 cm); Pain 10/10; 14:58 BP 138 / 80; Pulse 88; Resp 16; Pulse Ox 100% on R/A; zb 13:02 Body Mass Index 25.75 (68.04 kg, 162.56 cm) zb MDM: 13:06 Patient medically screened. kb 14:47 Data reviewed: vital signs, nurses notes. Data interpreted: Pulse oximetry: on room air kb is 100 %. Interpretation: normal. Counseling: I had a detailed discussion with the patient and/or guardian regarding: the historical points, exam findings, and any diagnostic results supporting the discharge/admit diagnosis, radiology results, the need for outpatient follow up, a orthopedic surgeon, to return to the emergency department if symptoms worsen or persist or if there are any questions or concerns that arise at home. ED course: Pt educated to continue tylenol and aleve for pain as she has been. Pt began yelling at me stating that those do not work and she needs something else for pain for home. Educated on other nonpharmacologic pain management options. Pt continued to yell at me, stating "I'm going to come back overdosed if I just take tylenol and aleve because they aren't helping so I will just keep taking them." Pt educated to only take medications as directed on bottle. Pt continues to yell "I'm going to be back tonight with an overdose because you won't give me something that I can just take one of." I wrote for diclofenac, but pt refuses that prescription and wants something else. Conversations discussed with Dr Quintana who is in agreement not to prescribe narcotic pain medication. . 09/26 13:35 Order name: Shoulder Left (2 View) XRAY kb 09/26 13:35 Order name: Chest Single View XRAY kb Administered Medications: 14:17 Drug: Dora 5 mg-325 mg 1 tabs Route: PO; zb 14:56 Follow up: Response: No adverse reaction zb Disposition: 17:44 Co-signature as Attending Physician, Giancarlo Quintana MD. rn Disposition: 09/26/20 14:32 Discharged to Home. Impression: Fracture of clavicle. - Condition is Stable. - Discharge Instructions: Clavicle Fracture, Pezz-av-Lugm. - Prescriptions for Diclofenac Sodium 75 mg Oral Tablet, Delayed Release (E.C.) - take 1 tablet by ORAL route 2 times per day As needed; 16 tablet. - Medication Reconciliation Form, Thank You Letter, Antibiotic Education, Prescription Opioid Use form. - Follow up: Emergency Department; When: As needed; Reason: Worsening of condition. Follow up: Private Physician; When: 2 - 3 days; Reason: Recheck today's complaints, Continuance of care, Re-evaluation by your physician. Signatures: Dispatcher [employer] EDJaimie Hameed, GROUNDSKEEPING MAINTENANCE WORKER-C GROUNDSKEEPING MAINTENANCE WORKER-Ckb Giancarlo Quintana MD MD rn Brown, Zipporah, RN RN zb Corrections: (The following items were deleted from the chart) 15:00 14:32 09/26/2020 14:32 Discharged to Home. Impression: Fracture of clavicle. Condition zb is Stable. Forms are Medication Reconciliation Form, Thank You Letter, Antibiotic Education, Prescription Opioid Use. Follow up: Emergency Department; When: As needed; Reason: Worsening of condition. Follow up: Private Physician; When: 2 - 3 days; Reason: Recheck today's complaints, Continuance of care, Re-evaluation by your physician. kb
--- NOTE | 2020-09-26 15:40 | RAD REPORT ---
EXAM DESCRIPTION: RAD - Shoulder Left 2 View - 09/26/2020 2:28 pm CLINICAL HISTORY: Left shoulder pain FINDINGS: Fracture proximal to mid left clavicle with moderate distraction of the fracture fragments without significant change from the prior exam No dislocation
--- NOTE | 2020-09-26 15:41 | RAD REPORT ---
EXAM DESCRIPTION: [place] Single View09/26/2020 2:28 pm CLINICAL HISTORY: Chest pain COMPARISON: August 2020 FINDINGS: The lungs appear clear of acute infiltrate. The heart is normal size IMPRESSION: No acute abnormalities displayed
[2020-09-29 20:32] VITALS: TEMP 98.4; O2SAT 100
[2020-09-29 20:33] VITALS: BP 138/80
== END 2020-09-26 15:00 | disposition home or self-care (01) ==
LOC: ER 12:58
DX: S42.002A Fracture of unspecified part of left clavicle, initial encounter for closed fracture (principal); X58.XXXA Exposure to other specified factors, initial encounter; Y93.89 Activity, other specified; Y92.009 Unspecified place in unspecified non-institutional (private) residence as the place of occurrence of the external cause; I10 Essential (primary) hypertension; Z88.6 Allergy status to analgesic agent
CPT/HCPCS: 71045; 99283

== ENCOUNTER 2021-04-09 14:52 | Emergency (ER) | payer OTHER ==
--- NOTE | 2021-04-09 16:34 | ER ---
Nurse's Notes [facility] Name: Sushma Hastings Age: 36 yrs Sex: Female : 1985 Arrival Date: 04/09/2021 Time: 14:54 Bed 23 [facility] MD: Diagnosis: Insect Bite Presentation: 04/09 14:58 Chief complaint: Patient states: "i was bit by a spider in my right about 30 min ago." jd3 no spider visualized, just pain and swelling.". Coronavirus screen: At this time, the client does not indicate any symptoms associated with coronavirus-19. Ebola Screen: Patient negative for fever greater than or equal to 101.5 degrees Fahrenheit, and additional compatible Ebola Virus Disease symptoms. Initial Sepsis Screen: Does the patient meet any 2 criteria? No. Patient's initial sepsis screen is negative. Does the patient have a suspected source of infection? No. Patient's initial sepsis screen is negative. Risk Assessment: Do you want to hurt yourself or someone else? Patient reports no desire to harm self or others. Onset of symptoms was April 09, 2021. 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 - Social history:: Smoking status: Patient denies any tobacco usage or history of. Screenin:41 Abuse screen: Denies threats or abuse. Nutritional screening: No deficits noted. jd3 Tuberculosis screening: No symptoms or risk factors identified. Fall Risk Ambulatory Aid- None/Bed Rest/Nurse Assist (0 pts). Gait- Normal/Bed Rest/Wheelchair (0 pts) Mental Status- Oriented to own ability (0 pts). Total Ibrahim Fall Scale indicates No Risk (0-24 pts). Assessment: 16:40 General: Appears in no apparent distress. comfortable, Behavior is calm, cooperative, jd3 appropriate for age. Pain: Complains of pain in right eye Quality of pain is described as aching. Neuro: Level of Consciousness is awake, alert, obeys commands, Oriented to person, place, time, situation. Cardiovascular: Denies chest pain, Capillary refill < 3 seconds Patient's skin is warm and dry. Respiratory: Airway is patent Respiratory effort is even, unlabored, Respiratory pattern is regular, symmetrical, Denies cough, shortness of breath. GI: No signs and/or symptoms were reported involving the gastrointestinal system. : No signs and/or symptoms were reported regarding the genitourinary system. EENT: Reports pain in right eye. Derm: Skin is intact, Skin is dry, Skin is normal, Skin temperature is warm no bite or injury noted to skin or eyes. Musculoskeletal: Circulation, motion, and sensation intact. Range of motion: intact in all extremities. 16:58 Reassessment: Patient appears in no apparent distress at this time. Patient and/or jd3 family updated on plan of care and expected duration. Pain level reassessed. Patient is alert, oriented x 3, equal unlabored respirations, skin warm/dry/pink. Patient states feeling better. Vital Signs: 15:01 BP 131 / 85; Pulse 82; Resp 17 S; Temp 98.6(TE); Pulse Ox 99% on R/A; Weight 68.04 kg jd3 (R); Height 5 ft. 5 in. (165.10 cm) (R); Pain 10/10; 16:42 Pulse 80; Resp 16 S; Pulse Ox 100% on R/A; jd3 15:01 Body Mass Index 24.96 (68.04 kg, 165.10 cm) jd3 ED Course: 14:54 Patient arrived in ED. ds1 15:00 Triage completed. jd3 15:02 Arm band placed on. jd3 15:26 Phylicia Spence, MARGARITO is Primary Nurse. zb 15:44 Yair Parker PA is PHCP. jmm 15:44 Chris Loyd MD is Attending Physician. jmm 16:42 Patient has correct armband on for positive identification. Bed in low position. Call jd3 light in reach. Side rails up X 1. Adult w/ patient. Pulse ox on. NIBP on. 16:42 No provider procedures requiring assistance completed. Patient did not have IV access jd3 during this emergency room visit. Administered Medications: 16:40 Drug: Decadron (dexamethasone) 10 mg Route: IM; Site: right deltoid; jd3 16:58 Follow up: Response: No adverse reaction jd3 Outcome: 16:33 Discharge ordered by . mckenzie 16:58 Discharged to home ambulatory, with family. jd3 16:58 Condition: stable 16:58 Discharge instructions given to patient, family, Instructed on discharge instructions, follow up and referral plans. medication usage, Demonstrated understanding of instructions, follow-up care, medications, Prescriptions given X 3. 16:59 Patient left the ED. jd3 Signatures: Yair Parker PA PA jmm Sanford, Demi ds1 iMke Christian RN RN jPhylicia Mcmillan RN RN zb Corrections: (The following items were deleted from the chart) 15:04 14:58 Acuity: JEFFY 4 jd3 jd3 16:40 14:58 Acuity: JEFFY 3 jd3 jd3
--- NOTE | 2021-04-09 16:34 | EDPHYS ---
Physician Documentation [facility] Name: Sushma Hastings Age: 36 yrs Sex: Female : 1985 Arrival Date: 04/09/2021 Time: 14:54 Bed 23 Private MD: ED Physician Chris Loyd HPI: 04/09 16:30 This 36 yrs old Black Female presents to ER via Ambulatory with complaints of Spider jmm Bite. 16:30 The patient was bitten on the right eye. Onset: The symptoms/episode began/occurred jmm acutely, last night. This is a 36 year old female with a history of glaucoma, htn, epilepsy that presents to the ED with complaints of right eye swelling, shortness of breath. States she was bit by a spider which was then caught in her eye. Complains of shortness of breath, and swelling to her hands and feet. . 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 - Social history:: Smoking status: Patient denies any tobacco usage or history of. ROS: 16:30 Constitutional: Negative for fever, chills, and weight loss, Cardiovascular: Negative jmm for chest pain, palpitations, and edema. 16:30 Respiratory: Positive for shortness of breath. 16:30 MS/extremity: Positive for swelling. 16:30 All other systems are negative. Exam: 16:30 Neck: Trachea midline, Supple Chest/axilla: Normal chest wall appearance and motion. jmm Cardiovascular: Regular rate and rhythm. No edema appreciated Respiratory: Normal respirations, no respiratory distress appreciated Abdomen/GI: Non distended, soft Back: Normal ROM Skin: General appearance color normal MS/ Extremity: Moves all extremities, no obvious deformities appreciated, no edema noted to the lower extremities Neuro: Awake and alert, normal gait Psych: Behavior is normal, Mood is normal, Patient is cooperative and pleasant 16:30 Constitutional: The patient appears alert, awake. 16:30 Head/face: mild erythema surrounding the right orbit, . 16:30 Eyes: Extraocular movements: intact throughout, NO FB seen on upper and lower eyelid eversion. Vital Signs: 15:01 BP 131 / 85; Pulse 82; Resp 17 S; Temp 98.6(TE); Pulse Ox 99% on R/A; Weight 68.04 kg jd3 (R); Height 5 ft. 5 in. (165.10 cm) (R); Pain 10/10; 16:42 Pulse 80; Resp 16 S; Pulse Ox 100% on R/A; jd3 15:01 Body Mass Index 24.96 (68.04 kg, 165.10 cm) jd3 MDM: 15:54 Patient medically screened. [facility] 16:32 Data reviewed: vital signs, nurses notes. Counseling: I had a detailed discussion with mckenzie the patient and/or guardian regarding: the historical points, exam findings, and any diagnostic results supporting the discharge/admit diagnosis, the need for outpatient follow up, to return to the emergency department if symptoms worsen or persist or if there are any questions or concerns that arise at home. Administered Medications: 16:40 Drug: Decadron (dexamethasone) 10 mg Route: IM; Site: right deltoid; jd3 16:58 Follow up: Response: No adverse reaction jd3 Disposition: 04/09/21 16:33 Discharged to Home. Impression: Insect Bite. - Condition is Stable. - Discharge Instructions: Insect Bite. - Prescriptions for Hydroxyzine HCl 25 mg Oral Tablet - take 1 tablet by ORAL route every 6 hours As needed; 30 tablet. Doxycycline Hyclate 100 mg Oral Tablet - take 1 tablet by ORAL route every 12 hours; 20 tablet. Medrol (Fausto) 4 mg Oral Tablets, Dose Pack - take 1 tablet by ORAL route as directed - follow package instructions; 1 packet. - Medication Reconciliation Form, Thank You Letter, Antibiotic Education, Prescription Opioid Use form. - Follow up: Private Physician; When: 2 - 3 days; Reason: Recheck today's complaints, Continuance of care, Re-evaluation by your physician. Signatures: Yair Parker PA PA jmm Davies, Jonathon, RN RN jd3 Corrections: (The following items were deleted from the chart) 16:59 16:33 04/09/2021 16:33 Discharged to Home. Impression: Insect Bite. Condition is jd3 Stable. Forms are Medication Reconciliation Form, Thank You Letter, Antibiotic Education, Prescription Opioid Use. Follow up: Private Physician; When: 2 - 3 days; Reason: Recheck today's complaints, Continuance of care, Re-evaluation by your physician. mckenzie
[2021-04-09] MEDS ORDERED: dexAMETHasone 10 MG/ML VIAL ONE (16:56)
[2021-04-09 17:04] VITALS: BP 131/85; TEMP 98.6
[2021-04-09 17:05] VITALS: O2SAT 100
== END 2021-04-09 16:59 | disposition home or self-care (01) ==
LOC: ER 14:52
DX: T63.301A Toxic effect of unspecified spider venom, accidental (unintentional), initial encounter (principal); I10 Essential (primary) hypertension; Z88.6 Allergy status to analgesic agent
CPT/HCPCS: 96372; 99283; J1100

== ENCOUNTER 2021-07-27 11:57 | Emergency (ER) | payer OTHER ==
--- NOTE | 2021-07-27 13:48 | RAD REPORT ---
EXAM DESCRIPTION: CT - Soft Tissue Neck W/Contr - 07/27/2021 1:35 pm CLINICAL HISTORY: FB sensation, neck pain COMPARISON: No comparisons TECHNIQUE: During dynamic enhancement using 100 milliliters nonionic IV contrast, axial 5 millimeter thick images of the neck were obtained. All CT scans are performed using dose optimization technique as appropriate and may include automated exposure control or mA/KV adjustment according to patient size. FINDINGS: Intracranial portion the examination is unremarkable. Mastoid air cells and middle ears ar e clear. Paranasal sinuses are clear. The frontal sinuses are not fully imaged on this study. No glob e or orbital content abnormality. No pharyngeal mass or asymmetry identified. Soft palate, tonsil, tongue base and epiglottic tissue sh ow no suspicious findings. No vocal cord abnormality identified. Retropharyngeal space is unremarkabl e. Parotid, submandibular and thyroid gland tissues are normal. No abnormal lymphadenopathy identified. No abnormal vascular finding. IMPRESSION: Unremarkable contrast-enhanced CT scan of the neck.
--- NOTE | 2021-07-27 14:00 | ER ---
Nurse's Notes [facility] Name: Sushma Hastings Age: 36 yrs Sex: Female : 1985 Arrival Date: 07/27/2021 Time: 12:04 Bed 25 Private MD: Diagnosis: Parasitosis;Rash;Dysphagia Presentation: 07/27 12:05 Chief complaint: EMS states: "I have a parasite in my throat". vomiting. Coronavirus oh screen: Vaccine status: Patient reports being unvaccinated. Ebola Screen: No symptoms or risks identified at this time. Initial Sepsis Screen: Does the patient meet any 2 criteria? No. Patient's initial sepsis screen is negative. Does the patient have a suspected source of infection? No. Patient's initial sepsis screen is negative. Risk Assessment: Do you want to hurt yourself or someone else? Patient reports no desire to harm self or others. Onset of symptoms was July 27, 2021. 12:05 Method Of Arrival: EMS: [facility] [place] 12:05 Acuity: JEFFY 3 oh Triage Assessment: 12:10 General: Appears distressed, Behavior is cooperative, anxious, restless. Pain: oh Complains of pain in throat. Historical: - Allergies: 12:08 Ibuprofen; oh - PMHx: 12:08 Hypertension; Seizures; Glaucoma; oh - Immunization history:: Adult Immunizations up to date, Client reports having NOT received the Covid vaccine. - Social history:: Smoking status: Patient reports the use of cigarette tobacco products, smokes one-half pack cigarettes per day, marijuana. Screenin:11 Abuse screen: Denies threats or abuse. Nutritional screening: No deficits noted. oh Tuberculosis screening: No symptoms or risk factors identified. Fall Risk None identified. Assessment: 12:12 GI: Reports vomiting. EENT: Reports difficulty swallowing since this morning, states oh she feels the parasite in her room crawled down her throat. Vital Signs: 12:05 BP 127 / 88; Pulse 84; Resp 19; Temp 98.2(O); Pulse Ox 98% on R/A; oh 14:12 BP 120 / 78; Pulse 82; Resp 17; Temp 98.1; Pulse Ox 98% on R/A; oh ED Course: 12:04 Patient arrived in ED. em1 12:05 Magdalene Osorio, RN is Primary Nurse. oh 12:08 Triage completed. oh 12:11 Arm band placed on left wrist. oh 12:17 Yair Parker PA is PHCP. [facility] 12:17 William Mojica MD is Attending Physician. [facility] 13:35 CT Soft Tissue Neck W/contr In Process Unspecified. EDMS 13:39 Inserted saline lock: 22 gauge in left antecubital area, using aseptic technique. vg1 ,using aseptic technique. completed by [employer]. 13:58 Kal Jones MD is Referral Physician. jmm 14:13 IV discontinued, bleeding controlled, Pressure dressing applied. oh Administered Medications: No medications were administered Outcome: 13:59 Discharge ordered by . [facility] 14:13 Discharged to home ambulatory. oh 14:13 Condition: stable 14:13 Discharge instructions given to patient. 14:13 Patient left the ED. oh Signatures: Dispatcher [employer] EDMS Yair Parker PA PA jmm Martinez, Eric em1 Minna Noguera, RN RN vg1 Magdalene Osorio, RN RN oh
--- NOTE | 2021-07-27 14:00 | EDPHYS ---
Physician Documentation [facility] Name: Sushma Hastings Age: 36 yrs Sex: Female : 1985 Arrival Date: 07/27/2021 Time: 12:04 Bed 25 Private MD: LANCE Physician William Mojica HPI: 07/27 13:53 This 36 yrs old Black Female presents to ER via EMS with complaints of sore throat. jmm 13:53 Onset: The symptoms/episode began/occurred gradually. Modifying factors: The symptoms jmm are alleviated by nothing, the symptoms are aggravated by nothing. Associated signs and symptoms: Pertinent positives: rash. This is a 36 this is a 36-year-old female with history of hypertension, epilepsy that presents emerged department with complaints of concerns for foreign body in her throat. Patient has concerns that there is a parasite in her throat. Patient also complains of rash to the right arm which she is also concerned may be due to a parasite and may be getting infected.. Historical: - Allergies: 12:08 Ibuprofen; oh - PMHx: 12:08 Hypertension; Seizures; Glaucoma; oh - Immunization history:: Adult Immunizations up to date, Client reports having NOT received the Covid vaccine. - Social history:: Smoking status: Patient reports the use of cigarette tobacco products, smokes one-half pack cigarettes per day, marijuana. ROS: 13:53 Constitutional: Negative for fever, chills, and weight loss, Cardiovascular: Negative jmm for chest pain, palpitations, and edema, Respiratory: Negative for shortness of breath, cough, wheezing, and pleuritic chest pain. 13:53 Skin: Positive for rash. 13:53 All other systems are negative. Exam: 13:53 Head/Face: atraumatic. Eyes: EOMI, no conjunctival erythema appreciated ENT: Moist jmm Mucus Membranes 13:53 Chest/axilla: Normal chest wall appearance and motion. Cardiovascular: Regular rate and rhythm. No edema appreciated Respiratory: Normal respirations, no respiratory distress appreciated Abdomen/GI: Non distended, soft Back: Normal ROM 13:53 Constitutional: The patient appears in no acute distress, alert, awake, anxious. 13:53 ENT: Posterior pharynx: is normal. 13:53 Skin: Mild erythema noted mild erythema noted to the right shoulder with small abrasions.. 13:53 Neuro: Orientation: is normal, Mentation: is normal, Memory: is normal. 13:53 Psych: Behavior/mood is pleasant, cooperative. Vital Signs: 12:05 BP 127 / 88; Pulse 84; Resp 19; Temp 98.2(O); Pulse Ox 98% on R/A; oh 14:12 BP 120 / 78; Pulse 82; Resp 17; Temp 98.1; Pulse Ox 98% on R/A; oh MDM: 12:20 Patient medically screened. [facility] 13:53 Data reviewed: vital signs, nurses notes. Counseling: I had a detailed discussion with mckenzie the patient and/or guardian regarding: the historical points, exam findings, and any diagnostic results supporting the discharge/admit diagnosis, radiology results, the need for outpatient follow up, to return to the emergency department if symptoms worsen or persist or if there are any questions or concerns that arise at home. ED course: Patient is alert nontoxic in appearance patient is alert nontoxic in appearance in the ED. Patient possibly is suffering from parasitosis. Advised to follow up with dermatology and or psychiatry. . 07/27 12:52 Order name: CT Soft Tissue Neck W/contr; Complete Time: 13:52 [facility] 07/27 12:52 Order name: Saline Lock; Complete Time: 13:39 [facility] Administered Medications: No medications were administered Disposition Summary: 07/27/21 13:59 Discharge Ordered Location: Home [facility] Condition: Stable [facility] Diagnosis - Parasitosis jmm - Rash jmm - Dysphagia [facility] Followup: [facility] - With: Kal Jones MD - When: 2 - 3 days - Reason: Recheck today's complaints, Continuance of care, Re-evaluation by your physician Discharge Instructions: - Discharge Summary Sheet [facility] - Rash, Adult m Forms: - Medication Reconciliation Form [facility] - Thank You Letter [facility] - Antibiotic Education [facility] - Prescription Opioid Use [facility] Prescriptions: - Cephalexin 500 mg Oral Capsule - take 1 capsule by ORAL route every 6 hours for 10 days; 40 capsule; Refills: 0, [facility] Product Selection Permitted - Elimite 5 % Topical Cream - apply 1 application by TOPICAL route one time Wash after 12 hours.; 60 gram; [facility] Refills: 0, Product Selection Permitted Addendum: 07/31/2021 06:55 Co-signature as Attending Physician, William Mojica MD I agree with the assessment and c aguilar plan of care. Signatures: Dispatcher [employer] William Stapleton MD MD cha Mickail, Joel, PA PA jmm Harriott, Oneka, RN RN oh
[2021-07-27 14:38] VITALS: O2SAT 98
[2021-07-27 14:40] VITALS: BP 120/78; TEMP 98.1
== END 2021-07-27 14:13 | disposition home or self-care (01) ==
LOC: ER 11:57
DX: R13.10 Dysphagia, unspecified (principal); B89 Unspecified parasitic disease; R21 Rash and other nonspecific skin eruption; I10 Essential (primary) hypertension; Z88.6 Allergy status to analgesic agent
CPT/HCPCS: 70491; 99283

== ENCOUNTER 2023-03-07 22:24 | Emergency (ER) | payer OTHER ==
[2023-03-07] MEDS ORDERED: ACETAMINOPHEN 500 MG TAB ONE (22:55)
[2023-03-07] MEDS ORDERED: ONDANSETRON 4 MG/2 ML VIAL ONE (22:56)
[2023-03-07] MEDS ORDERED: NA CHLORIDE 0.9% 1,000 ML ONE (22:56)
[2023-03-07] MEDS ORDERED: MORPHINE 4 MG/ML SYR ONE (22:56)
[2023-03-08 00:03] LABS: Absolute Lymphocytes (CBC) 1.7 K/uL (0.7-4.9); Hematocrit 33.8 % (36.0-45.0); Lymphocytes % 13.2 % (15.3-44.8); MCV 77.6 fL (80-100); RBC Red Blood Cell Count 4.35 M/uL (3.86-4.86)
[2023-03-08 00:08] LABS: Protime INR 1.39
[2023-03-08 00:16] LABS: Albumin 3.5 g/dL (3.4-5.0); Bilirubin Total 0.6 mg/dL (0.2-1.0); Potassium 3.7 mEq/L (3.5-5.1); Protein, Total 7.8 g/dL (6.4-8.2)
[2023-03-08 00:28] LABS: Specific Gravity 1.015 (1.005-1.030); Urine Bacteria 20-50 /HPF (<20); Urine Bilirubin NEGATIVE (Negative); Urine Blood Negative (Negative); Urine Clarity Clear (Clear); Urine Color Light-Yellow (Yellow); Urine Glucose NEGATIVE (Negative); Urine Mucus Slight /HPF (None Seen); Urine Protein TRACE (Negative); Urine RBC <5 /HPF (None Seen); Urine Urobilinogen Normal (Normal)
[2023-03-08 00:47] LABS: SARS-CoV-2 Antigen Rapid Res Negative (Negative)
[2023-03-08 00:59] LABS: Specific Gravity 1.015 (1.005-1.030)
[2023-03-08] MEDS ORDERED: CEFTRIAXONE 1000 MG/VIAL ONE (01:04)
[2023-03-08] MEDS ORDERED: NA CHLORIDE 0.9% 50 ML ONE (01:04)
--- NOTE | 2023-03-08 02:33 | ER ---
Nurse's Notes [facility] Name: Sushma Hastings Age: 38 yrs Sex: Female : 1985 Arrival Date: 03/07/2023 Time: 22:24 Bed 8 Private MD: Diagnosis: Other and unspecified ovarian cysts;UTI/ Urinary tract infection, site not specified Presentation: 03/07 22:43 Chief complaint: EMS states: pt is a 38 year old female with a past history of ovarian kd3 cysts. She started having left lower quadrant pain that started yesterday and started to get worse. She says that the pain is similar to the last time she had an ovarian cyst approximately a year ago. She had surgery at that time for the ovarian cyst. Coronavirus screen: Vaccine status: Patient reports being unvaccinated. Ebola Screen: No symptoms or risks identified at this time. Initial Sepsis Screen: Does the patient meet any 2 criteria? Temp <36.0*C (96.8*F)) or > 38.3*C (100.9*F). No. Patient's initial sepsis screen is negative. Does the patient have a suspected source of infection? No. Patient's initial sepsis screen is negative. Risk Assessment: Do you want to hurt yourself or someone else? Patient reports no desire to harm self or others. Onset of symptoms was March 07, 2023. 22:43 Method Of Arrival: EMS: [facility] kd3 22:43 Acuity: JEFFY 3 kd3 Triage Assessment: 22:46 General: Appears uncomfortable, Behavior is calm, cooperative. Pain: Complains of pain kd3 in left lower quadrant. GI: Abdomen is non-distended. Historical: - PMHx: 22:46 Glaucoma; Hypertension; Seizures; kd3 - Immunization history:: Adult Immunizations up to date. - Social history:: Smoking status: Patient/guardian denies using tobacco, the patient reports quitting approximately 1 years ago. Screenin/19 02:00 [facility] ED Fall Risk Assessment (Adult) History of falling in the last 3 months, kd3 including since admission No falls in past 3 months (0 pts) Confusion or Disorientation No (0 pts) Intoxicated or Sedated No (0 pts) Impaired Gait No (0 pts) Mobility Assist Device Used No (0 pt) Altered Elimination No (0 pt) Score/Fall Risk Level 0 - 2 = Low Risk Maintained a safe environment. Abuse screen: Denies threats or abuse. Denies injuries from another. Nutritional screening: No deficits noted. Tuberculosis screening: No symptoms or risk factors identified. Assessment: 03/07 23:44 Reassessment: Patient is alert, oriented x 3, equal unlabored respirations, skin kd3 warm/dry/pink. Patient states feeling better. Patient states symptoms have improved. General: Appears comfortable, Behavior is calm, cooperative. 03/08 00:55 Reassessment: Patient and/or family updated on plan of care and expected duration. Pain ha1 level reassessed. Patient is alert, oriented x 3, equal unlabored respirations, skin warm/dry/pink. Patient states feeling better. Patient states symptoms have improved. 02:00 GI: Bowel sounds present X 4 quads. Abdomen is tender to palpation in left lower kd3 quadrant. Vital Signs: 03/07 22:43 BP 132 / 96; Pulse 95; Resp 19; Temp 102.9(O); Pulse Ox 97% on R/A; Weight 65.77 kg; kd3 Height 5 ft. 4 in. ; 23:44 Pulse 82; Resp 18; Pulse Ox 96% on R/A; kd3 03/08 00:00 BP 111 / 75; Pulse 84; Resp 16; Pulse Ox 97% on R/A; kd3 00:30 Temp 100.6(O); kd3 00:55 BP 103 / 65; Pulse 77; Resp 18 S; Pulse Ox 97% on R/A; ha1 01:25 BP 106 / 75; Pulse 76; Resp 19; Temp 99.5(O); kd3 02:00 BP 104 / 65; Pulse 66; Resp 15 S; Pulse Ox 98% on R/A; kd3 03/07 22:43 Body Mass Index 24.89 (65.77 kg, 162.56 cm) kd3 ED Course: 03/07 22:25 Patient arrived in ED. jj6 22:26 Radha Krishnan MD is Attending Physician. sp3 22:27 William Virk PA is PHCP. cp 22:37 Tami Mcclellan, MARGARITO is Primary Nurse. kd3 22:43 Chest Single View XRAY In Process Unspecified. EDMS 22:46 Triage completed. kd3 22:46 Arm band placed on right wrist. kd3 23:43 Influenza Screen (a \T\ B) Sent. kd3 23:44 Blood Culture Adult (2) Sent. kd3 23:44 CBC with Diff Sent. kd3 23:44 CMP Sent. kd3 23:44 Lactate w/ 2H reflex if indic. Sent. kd3 23:44 Protime (+inr) Sent. kd3 23:44 Ptt, Activated Sent. kd3 23:52 No provider procedures requiring assistance completed. Inserted saline lock: 22 gauge kd3 in right antecubital area, using aseptic technique. Blood collected. Missed attempt(s): 22 gauge in right antecubital area. 24 gauge in right hand. Maintain EMS IV. Dressing intact. Good blood return noted. Site clean \T\ dry. Gauge \T\ site: 20 gauge in the left A/C. 03/08 00:00 SARS-COV-2 Antigen Rapid Sent. kd3 00:00 Urinalysis w/ reflexes Sent. kd3 00:00 Ptt, Activated Sent. kd3 00:00 Protime (+inr) Sent. kd3 00:00 CMP Sent. kd3 00:00 CBC with Diff Sent. kd3 00:00 Blood Culture Adult (2) Sent. kd3 01:26 CT Abd/Pelvis - IV Contrast Only In Process Unspecified. EDMS 02:00 Patient has correct armband on for positive identification. Placed in gown. Bed in low kd3 position. Call light in reach. Administered Medications: 03/07 23:05 Drug: NS 0.9% IV (30 ml/kg) 30 ml/kg Route: IV; Rate: bolus; Site: left antecubital; kd3 23:05 Drug: morphine IVP or IV 4 mg Route: IVP; Infused Over: 4 mins; Site: left antecubital; kd3 03/08 03:41 Follow up: Response: No adverse reaction; Pain is decreased kd3 03/07 23:05 Drug: Ondansetron IVP 4 mg Route: IVP; Site: left antecubital; kd3 03/08 03:40 Follow up: Response: No adverse reaction; Nausea is decreased kd3 03/07 23:43 Drug: Acetaminophen PO 1000 mg Route: PO; kd3 03/08 03:41 Follow up: Response: Temperature is decreased kd3 03/07 23:45 Drug: NS 0.9% IV (30 ml/kg) 30 ml/kg Route: IV; Rate: bolus; Site: left antecubital; 3 03/08 00:55 Drug: Rocephin IV 1 grams Route: IV; Rate: calculated rate; Site: right antecubital; ha1 Medication: 02:00 VIS not applicable for this client. 3 Outcome: 02:33 Discharge ordered by . lena 03:41 Patient left the ED. 3 Addendum: 03/11/2023 10:02 Addendum: Culture Results: Positive urine culture. Bacteria is resistant to, has a a5 intermediate sensitivity, or is not tested against prescribed antibiotics. Report given to PRIMITIVO for further evaluation and then to centrifugal drier operator for follow up with patient. Phone call Attempt #1 left voice mail. Signatures: Dispatcher [employer] EDMS Sil Terrell, RN RN aa5 William Virk PA PA cp Patel, Setul, MD MD 3 Larissa Bunn6 Tami Mcclellan RN RN 3 Arianna Carrero RN RN ha1 Corrections: (The following items were deleted from the chart) 03/07 23:49 23:43 SARS-COV-2 RT PCR+MOL.LAB.HAILY drawn and sent. [facility] EDWV
--- NOTE | 2023-03-08 02:34 | EDPHYS ---
Physician Documentation [facility] Name: Sushma Hastings Age: 38 yrs Sex: Female : 1985 Arrival Date: 03/07/2023 Time: 22:24 Bed 8 Private MD: ED Physician Radha Krishnan HPI: 03/07 22:35 This 38 yrs old Black Female presents to ER via EMS with complaints of Abdominal Pain. cp 22:35 The patient presents with abdominal pain in the lower abdomen, left worse than right. cp 22:35 Onset: The symptoms/episode began/occurred yesterday. cp 22:35 Associated signs and symptoms: Pertinent positives: fever, Pertinent negatives: cp constipation, diarrhea, vaginal discharge. The symptoms are described as constant. 22:35 Severity of pain: in the emergency department the pain is unchanged despite home cp interventions. Historical: - PMHx: 22:46 Glaucoma; Hypertension; Seizures; kd3 - Immunization history:: Adult Immunizations up to date. - Social history:: Smoking status: Patient/guardian denies using tobacco, the patient reports quitting approximately 1 years ago. ROS: 22:40 Constitutional: Positive for fever, poor PO intake. cp 22:40 Eyes: Negative for injury, pain, redness, and discharge. cp 22:40 ENT: Negative for drainage from ear(s), ear pain, sore throat, difficulty swallowing, difficulty handling secretions. 22:40 Cardiovascular: Negative for chest pain, palpitations. 22:40 Respiratory: Positive for cough, Negative for shortness of breath, wheezing. 22:40 Abdomen/GI: Positive for abdominal pain, of the lower abdomen, Negative for vomiting, diarrhea, constipation. 22:40 Back: Negative for injury or acute deformity, decreased range of motion. 22:40 : Negative for flank pain, difficulty urinating, vaginal bleeding, vaginal discharge. 22:40 Neuro: Negative for altered mental status, dizziness, headache, weakness. 22:40 All other systems are negative. Exam: 22:45 Constitutional: The patient appears in no acute distress, alert, awake, cp non-diaphoretic, non-toxic, well developed, well nourished, uncomfortable. 22:45 Head/Face: Normocephalic, atraumatic. cp 22:45 Eyes: Periorbital structures: appear normal, Conjunctiva: normal, no exudate, no injection, Sclera: no appreciated abnormality, Lids and lashes: appear normal, bilaterally. 22:45 ENT: External ear(s): are unremarkable, Nose: is normal, Mouth: Lips: moist, Oral mucosa: moist, Posterior pharynx: is normal, airway is patent, no erythema, no exudate. 22:45 Neck: ROM/movement: is normal, is supple, without pain, no range of motions limitations, no meningismus. 22:45 Chest/axilla: Inspection: normal. 22:45 Cardiovascular: Rate: tachycardic, Rhythm: regular. 22:45 Respiratory: the patient does not display signs of respiratory distress, Respirations: normal, no use of accessory muscles, no retractions, labored breathing, is not present, Breath sounds: are clear throughout, no decreased breath sounds, no stridor, no wheezing. 22:45 Abdomen/GI: Inspection: abdomen appears normal, Bowel sounds: active, all quadrants, Palpation: soft, in all quadrants, mild abdominal tenderness, in the right lower quadrant, moderate abdominal tenderness, in the suprapubic area and left lower quadrant, rebound tenderness, is not appreciated, voluntary guarding, is elicited in the left lower quadrant. 22:45 Back: CVA tenderness, is absent. 22:45 Skin: cellulitis, is not appreciated, no rash present. Vital Signs: 22:43 BP 132 / 96; Pulse 95; Resp 19; Temp 102.9(O); Pulse Ox 97% on R/A; Weight 65.77 kg; kd3 Height 5 ft. 4 in. ; 23:44 Pulse 82; Resp 18; Pulse Ox 96% on R/A; kd3 03/08 00:00 BP 111 / 75; Pulse 84; Resp 16; Pulse Ox 97% on R/A; kd3 00:30 Temp 100.6(O); kd3 00:55 BP 103 / 65; Pulse 77; Resp 18 S; Pulse Ox 97% on R/A; ha1 01:25 BP 106 / 75; Pulse 76; Resp 19; Temp 99.5(O); kd3 02:00 BP 104 / 65; Pulse 66; Resp 15 S; Pulse Ox 98% on R/A; kd3 03/07 22:43 Body Mass Index 24.89 (65.77 kg, 162.56 cm) kd3 MDM: 03/07 22:28 Patient medically screened. cp 23:00 Differential diagnosis: appendicitis, Ovarian Torsion, Pelvic Inflammatory Disease, cp Pyelonephritis, Tubal Ovarian Abcess, Ureterolithiasis, urinary tract infection. 03/08 02:32 Data reviewed: vital signs, nurses notes, lab test result(s), radiologic studies, CT cp scan. 02:32 Consideration of Admission/Observation Escalation of care including cp admission/observation considered. Test considered but Not performed: Ultrasound transvaginal. Counseling: I had a detailed discussion with the patient and/or guardian regarding: the historical points, exam findings, and any diagnostic results supporting the discharge/admit diagnosis, lab results, radiology results, to return to the emergency department if symptoms worsen or persist or if there are any questions or concerns that arise at home. Response to treatment: the patient's symptoms have markedly improved after treatment, and as a result, I will discharge patient. 03/07 22: Order name: Blood Culture Adult (2) 03/07 Order name: CBC with Diff; Complete Time: 00:49 03/08 00:49 Interpretation: Normal except: WBC 13.00; HGB 11.5; HCT 33.8; MCV 77.6; MCH 26.4; RDW cp 15.5; MPV 7.0; YANIQUE% 78.7; LYM% 13.2; NEUT A 10.2. 03/07 22: Order name: CMP; Complete Time: 00:49 03/08 00:50 Interpretation: Normal except: NA 134; AST 10; ALK 43; CA 8.3; GLOB 4.3; A/G 0.8. 03/07 Order name: Lactate w/ 2H reflex if indic.; Complete Time: 00:49 03/08 00:50 Interpretation: LAC 0.9; Reviewed. 03/07 Order name: Protime (+inr); Complete Time: 00:49 03/08 00:50 Interpretation: Abnormal: PT 15.3. 03/07 22: Order name: Ptt, Activated; Complete Time: 00:49 03/07 Order name: Urinalysis w/ reflexes; Complete Time: 00:49 03/08 00:50 Interpretation: Normal except: UPROT TRACE; UNIT 2+; UESTR 500; UWBC >50; UBACT 20-50; cp LESTER Cx 1+. 03/07 22:29 Order name: Influenza Screen (a \T\ B); Complete Time: 00:49 03/08 00:50 Interpretation: Reviewed. 03/07 23:49 Order name: SARS-COV-2 Antigen Rapid; Complete Time: 00:49 EDWI 03/08 00:50 Interpretation: Reviewed. 03/08 00:31 Order name: Urine Culture EDWI 03/08 00:53 Order name: Test, Urine; Complete Time: 02:10 EDWI 03/08 02:10 Interpretation: Reviewed. 03/07 22:29 Order name: Chest Single View XRAY 03/07 22:48 Order name: CT Abd/Pelvis - IV Contrast Only 03/07 22:29 Order name: EKG; Complete Time: 22:29 03/07 22:29 Order name: Accucheck; Complete Time: 00:09 03/07 22:29 Order name: Cardiac monitoring; Complete Time: 23:44 03/07 22:29 Order name: EKG - Nurse/Tech; Complete Time: 23:44 03/07 22:29 Order name: IV Saline Lock - Large Bore; Complete Time: 23:44 03/07 22:29 Order name: Labs collected and sent; Complete Time: 23:44 cp 03/07 22:29 Order name: O2 Per Protocol; Complete Time: 23:44 03/07 22:29 Order name: O2 Sat Monitoring; Complete Time: 23:44 03/07 22:29 Order name: Vital Signs; Complete Time: 00:00 03/08 02:10 Order name: PO challenge; Complete Time: 02:12 cp Administered Medications: 03/07 23:05 Drug: NS 0.9% IV (30 ml/kg) 30 ml/kg Route: IV; Rate: bolus; Site: left antecubital; 3 23:05 Drug: morphine IVP or IV 4 mg Route: IVP; Infused Over: 4 mins; Site: left antecubital; 3 03/08 03:41 Follow up: Response: No adverse reaction; Pain is decreased [facility] [address] 03/07 23:05 Drug: Ondansetron IVP 4 mg Route: IVP; Site: left antecubital; [facility] [address] 03/08 03:40 Follow up: Response: No adverse reaction; Nausea is decreased [facility] [address] 03/07 23:43 Drug: Acetaminophen PO 1000 mg Route: PO; [facility] [address] 03/08 03:41 Follow up: Response: Temperature is decreased [facility] [address] 03/07 23:45 Drug: NS 0.9% IV (30 ml/kg) 30 ml/kg Route: IV; Rate: bolus; Site: left antecubital; [facility] [address] 03/08 00:55 Drug: Rocephin IV 1 grams Route: IV; Rate: calculated rate; Site: right antecubital; ha1 Disposition Summary: 03/08/23 02:33 Discharge Ordered Location: Home cp Problem: new cp Symptoms: have improved cp Condition: Stable cp Diagnosis - Other and unspecified ovarian cysts cp - UTI/ Urinary tract infection, site not specified cp Followup: cp - With: Private Physician - When: 1 week - Reason: Recheck today's complaints Discharge Instructions: - Discharge Summary Sheet cp - Ovarian Cyst cp - Urinary Tract Infection, Adult cp Forms: - Medication Reconciliation Form cp - Thank You Letter cp - Antibiotic Education cp - Prescription Opioid Use cp Prescriptions: - Ibuprofen 800 mg Oral Tablet - take 1 tablet by ORAL route every 8 hours As needed take with food; 30 tablet; cp Refills: 0, Product Selection Permitted - Zofran 4 mg Oral Tablet - take 1 tablet by ORAL route every 12 hours As needed; 20 tablet; Refills: 0, cp Product Selection Permitted - cefpodoxime 200 mg Oral Tablet - take 1 tablet by ORAL route every 12 hours for 7 days with food; 14 tablet; cp Refills: 0, Product Selection Permitted Signatures: Dispatcher [employer] EDMS William Virk PA PA cp Tami Mcclellan RN RN kd3 Arianna Carrero RN RN ha1 Corrections: (The following items were deleted from the chart) 03/07 23:49 22:29 SARS-COV-2 RT PCR+MOL.LAB.BRZ ordered. EDMS EDMS
[2023-03-08 03:54] VITALS: TEMP 99.5
[2023-03-08 03:56] VITALS: BP 104/65; O2SAT 98
--- NOTE | 2023-03-08 13:07 | RAD REPORT ---
EXAM DESCRIPTION: CT - Abdomen Pelvis W Contrast - 03/08/2023 1:53 am CLINICAL HISTORY: The patient is 38 years old and is Female; lower abdomen pain TECHNIQUE: Axial computed tomography images of the abdomen and pelvis with intravenous contrast. S agittal and coronal reformatted images were created and reviewed. This CT exam was performed using one or more of the following dose reduction techniques: automated exposure control, adjustment of t he mA and/or kV according to patient size, and/or use of iterative reconstruction technique. DLP: 563 mGy*cm COMPARISON: None. FINDINGS: LUNG BASES: Lung bases are clear. HEART: Visualized heart is normal. ABDOMEN: LIVER: Unremarkable. No mass. GALLBLADDER AND BILE DUCTS: Unremarkable. No calcified stones. No ductal dilation. PANCREAS: Unremarkable. No mass. No ductal dilation. SPLEEN: Unremarkable. No splenomegaly. ADRENALS: Unremarkable. No mass. KIDNEYS AND URETERS: Right renal cyst measuring 1.2 cm. No hydronephrosis. STOMACH AND BOWEL: Moderate stool burden. No obstruction. No mucosal thickening. PELVIS: APPENDIX: The appendix is seen and is within normal limits. BLADDER: Unremarkable. No mass. REPRODUCTIVE: Left ovarian cyst measuring 3.1 cm. ABDOMEN and PELVIS: INTRAPERITONEAL SPACE: Unremarkable. No free air. No significant fluid collection. BONES/JOINTS: No acute fracture. No dislocation. SOFT TISSUES: Unremarkable. VASCULATURE: Unremarkable. No abdominal aortic aneurysm. LYMPH NODES: Unremarkable. No enlarged lymph nodes. IMPRESSION: 1. Moderate stool burden. Correlate for constipation. 2. Left ovarian cyst measuring 3.1 cm. No follow-up imaging is recommended. Reference: JACR 2019;17(2):248-254 Electronically signed by: Alexander Yanez DO 03/08/2023 1:42 AM CDT Due to temporary technical issues with the PACS/Fluency reporting system, reports are being signed by the in house radiologists without review as a courtesy to insure prompt reporting. The interpreting radiologist is fully responsible for the content of the report.
--- NOTE | 2023-03-08 14:51 | RAD REPORT ---
EXAM DESCRIPTION: RAD - Chest Single View - 03/07/2023 10:41 pm XR Chest, 1 View CLINICAL HISTORY: COUGH TECHNIQUE: Frontal view of the chest. COMPARISON: No relevant prior studies available. FINDINGS: Lungs: Unremarkable. No consolidation. Pleural space: Unremarkable. No pneumothorax. Heart: Unremarkable. No cardiomegaly. Mediastinum: Unremarkable. Bones/joints: Unremarkable. IMPRESSION: No acute disease. Electronically signed by: Michael Rivas MD 03/07/2023 11:03 PM CDT Due to temporary technical issues with the PACS/Fluency reporting system, reports are being signed by the in house radiologists without review as a courtesy to insure prompt reporting. The interpreting radiologist is fully responsible for the content of the report.
--- NOTE | 2023-03-10 17:37 | EKG ---
Test Date: 2023-03-07 Test Time: 23:41:27 Paper Wrapping Machine Operator: MEASUREMENT RESULTS: Intervals: Rate: 78 UT: 132 QRSD: 72 QT: 372 QTc: 424 [place]: P: 22 UT: 132 QRS: 39 T: 43 INTERPRETIVE STATEMENTS: Normal sinus rhythm Normal ECG No previous ECG available for comparison Electronically Signed On 03-10-23 17:34:36 CDT by Alex Avila
== END 2023-03-08 03:41 | disposition home or self-care (01) ==
LOC: ER 22:24
DX: N39.0 Urinary tract infection, site not specified (principal); N83.299 Other ovarian cyst, unspecified side; I10 Essential (primary) hypertension; Z20.822 Contact with and (suspected) exposure to COVID-19
CPT/HCPCS: 93005; 87040 ×2; 87088; 85025; 81001; 87086; 36415; 81025; 85610; 83605; 85730; 87077; 87186; 80053; 87804 ×2; 74177; 71045; 87811; Q9967; J2405; J7030; J0696

== ENCOUNTER 2023-08-15 15:01 | Inpatient (IN) | payer OTHER ==
--- OUTSIDE RECORDS SUMMARY | 2023-08-15 15:03 | XMS REPORT | Continuity of Care Document ---
:1985 Author Organization [facility] t Address [address] [facility] [address] [place] [id number] Care Team Providers Name Role Phone [email or web address] Attending Clinician Unavailable [email or web address] Admitting Clinician Unavailable Problems This patient has no known problems. Allergies, Adverse Reactions, Alerts This patient has no known allergies or adverse reactions. Medications This patient has no known medications. Procedures This patient has no known procedures. Encounters Start End Encounter Admission Attending Care Care Encounter Source Date/Time Date/Time Type Type Clinicians Facility Department ID 2023-04-30 2023-04-30 Outpatient [email or web address] PRIV PRIV [id number] [facility] 00:00:00 00:00:00 diyala_S [id number] Medic al 2023-04-30 2023-04-30 Outpatient [email or web address] PRIV PRIV [id number] [facility] 00:00:00 00:00:00 diyala_S [id number] Medic al Results This patient has no known results.
[2023-08-15] MEDS ORDERED: NA CHLORIDE 0.9% 1,000 ML ONE ×2 (15:44→23:05)
[2023-08-15] MEDS ORDERED: ACETAMINOPHEN 650MG/RECT SUPP PR ONE (15:44)
[2023-08-15] MEDS ORDERED: NA CHLORIDE 0.9% 500 ML ONE (15:44)
[2023-08-15 16:22] LABS: Absolute Lymphocytes (CBC) 1.3 K/uL (0.7-4.9); Hematocrit 31.9 % (36.0-45.0); Lymphocytes % 7.2 % (15.3-44.8); MCV 78.4 fL (80-100); Platelets 168 thou/uL (152-406); RBC Red Blood Cell Count 4.06 M/uL (3.86-4.86)
[2023-08-15 16:41] LABS: Protime INR 1.6
[2023-08-15 16:44] LABS: Albumin 3.3 g/dL (3.4-5.0); Barbiturates NEGATIVE (NEGATIVE); Benzodiazepines NEGATIVE (NEGATIVE); Bilirubin Total 1.2 mg/dL (0.2-1.0); Cocaine NEGATIVE (NEGATIVE); METHAMPHETAM NEGATIVE (NEGATIVE); Methadone ND (NEGATIVE); Opiates NEGATIVE (NEGATIVE); Phencyclidine NEGATIVE (NEGATIVE); Potassium 3.2 mEq/L (3.5-5.1); Protein, Total 7.6 g/dL (6.4-8.2); THC Cannibis POSITIVE (NEGATIVE)
[2023-08-15 16:48] LABS: Specific Gravity 1.018 (1.005-1.030); Urine Bacteria <20 /HPF (<20); Urine Bilirubin NEGATIVE (Negative); Urine Blood 3+ (Negative); Urine Clarity Extremely Turbid (Clear); Urine Color Yellow (Yellow); Urine Crystals Unidentified Few /HPF (None Seen); Urine Glucose TRACE (Negative); Urine Mucus Slight /HPF (None Seen); Urine Protein 1+ (Negative); Urine RBC >50 /HPF (None Seen); Urine Urobilinogen Normal (Normal); Urine WBC Clump Rare /HPF (None Seen); Urine pH 5.5 (5.0-7.0)
--- NOTE | 2023-08-15 17:07 | RAD REPORT ---
EXAM DESCRIPTION: [place] Single View08/15/2023 4:30 pm CLINICAL HISTORY: Abdominal pain COMPARISON: February 2023 FINDINGS: The lungs appear clear of acute infiltrate. The heart is normal size IMPRESSION: No acute abnormalities displayed
--- NOTE | 2023-08-15 17:19 | RAD REPORT ---
EXAM DESCRIPTION: CT - Abdomen Pelvis W Contrast - 08/15/2023 5:01 pm CLINICAL HISTORY: Abdominal pain COMPARISON: February 2023 TECHNIQUE: Computed axial tomography of the abdomen pelvis was obtained. 100 cc Isovue-300 was admin istered intravenously. Oral contrast was not requested which limits evaluation of bowel and appendix All CT scans are performed using dose optimization technique as appropriate and may include automated exposure control or mA/KV adjustment according to patient size. FINDINGS: The liver, spleen, pancreas, adrenal and left kidney appear unremarkable 1.7 centimeter intermediate density structure has developed within the medial mid pole right kidney. Several small right renal cysts are present. There is no evidence of diverticulitis. The left ovary is enlarged. It contains a 3.5 centimeter cyst. The right ovary is enlarged. It contains several cysts. Largest measures 2.5 centimeters. No significant free fluid IMPRESSION: 1.7 centimeter intermediate density structure has developed within the right kidney. Thi s may represent an area of inflammation/infection. Enlargement of the ovaries containing cysts follow-up pelvic ultrasound in 3 months recommended to re -evaluate the ovaries
[2023-08-15] MEDS ORDERED: CEFTRIAXONE 1000 MG/VIAL ONE (17:28)
--- NOTE | 2023-08-15 17:55 | EDPHYS ---
Physician Documentation [facility] Name: Sushma Hastings Age: 38 yrs Sex: Female : 1985 Arrival Date: 08/15/2023 Time: 15:01 Bed 4 Private MD: ED Physician Radha Krishnan HPI: 08/15 15:44 This 38 yrs old Black Female presents to ER via Wheelchair with complaints of Abdominal snw Pain, Bloody Stools. 15:44 The patient presents with abdominal pain in the right upper quadrant, right lower snw quadrant, in the left lower quadrant. Onset: The symptoms/episode began/occurred suddenly, 4 day(s) ago, and became worse continuously since it began. The symptoms do not radiate. Associated signs and symptoms: Pertinent positives: nausea. The symptoms are described as constant. Severity of pain: At its worst the pain was severe in the emergency department the pain is unchanged. The patient has experienced a previous episode. The patient has not recently seen a physician. 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 - Social history:: Smoking status: Patient reports the use of cigarette tobacco products, smokes one-half pack cigarettes per day. ROS: 15:43 Constitutional: Negative for chills and weight loss, +fever Eyes: Negative for injury, snw pain, redness, and discharge, ENT: Negative for injury, pain, and discharge, Neck: Negative for injury, pain, and swelling, Cardiovascular: Negative for chest pain, palpitations, and edema, Respiratory: Negative for shortness of breath, cough, wheezing, and pleuritic chest pain, Back: Negative for injury and pain, : Negative for injury, bleeding, discharge, and swelling, MS/Extremity: Negative for injury and deformity, Skin: Negative for injury, rash, and discoloration, Neuro: Negative for headache, weakness, numbness, tingling, and seizure, Psych: Negative for depression, anxiety, suicide ideation, homicidal ideation, and hallucinations, 15:43 Abdomen/GI: Positive for abdominal pain, abdominal cramps, of the right upper quadrant, right lower quadrant and left lower quadrant, Exam: 15:41 Head/Face: Normocephalic, atraumatic. Eyes: Pupils equal round and reactive to light, snw extra-ocular motions intact. Lids and lashes normal. Conjunctiva and sclera are non-icteric and not injected. Cornea within normal limits. Periorbital areas with no swelling, redness, or edema. ENT: Nares patent. No nasal discharge, no septal abnormalities noted. Tympanic membranes are normal and external auditory canals are clear. Oropharynx with no redness, swelling, or masses, exudates, or evidence of obstruction, uvula midline. Mucous membranes moist. Neck: Trachea midline, no thyromegaly or masses palpated, and no cervical lymphadenopathy. Supple, full range of motion without nuchal rigidity, or vertebral point tenderness. No Meningismus. Chest/axilla: Normal chest wall appearance and motion. Nontender with no deformity. No lesions are appreciated. 15:41 Respiratory: Lungs have equal breath sounds bilaterally, clear to auscultation and percussion. No rales, rhonchi or wheezes noted. No increased work of breathing, no retractions or nasal flaring. Back: No spinal tenderness. No costovertebral tenderness. Full range of motion. 15:41 Skin: Warm, dry with normal turgor. Normal color with no rashes, no lesions, and no evidence of cellulitis. MS/ Extremity: Pulses equal, no cyanosis. Neurovascular intact. Full, normal range of motion. Neuro: Awake and alert, GCS 15, oriented to person, place, time, and situation. Cranial nerves II-XII grossly intact. Motor strength 5/5 in all extremities. Sensory grossly intact. Cerebellar exam normal. Normal gait. Psych: Awake, alert, with orientation to person, place and time. Behavior, mood, and affect are within normal limits. 15:41 Constitutional: The patient appears alert, anxious, febrile, listless, uncomfortable, 15:41 Cardiovascular: Rate: tachycardic, Rhythm: regular, Heart sounds: normal, 15:41 Abdomen/GI: Inspection: abdomen appears normal, Bowel sounds: diminished, in all quadrants, Palpation: moderate abdominal tenderness, in all quadrants, severe abdominal tenderness, Vital Signs: 15:18 BP 130 / 87; Pulse 112; Resp 22; Temp 103.2(O); Pulse Ox 97% on R/A; Weight 55.34 kg; ph Height 5 ft. 4 in. ; 16:53 BP 123 / 91; Pulse 95; Resp 18 S; Temp 100.5(O); Pulse Ox 100% on R/A; Pain 10/10; kc6 19:33 BP 126 / 91; Pulse 107; Resp 18; Pulse Ox 99% on R/A; km8 20:00 BP 124 / 92; Pulse 98; Pulse Ox 95% on R/A; km8 20:30 BP 122 / 82; Pulse 96; Pulse Ox 98% on R/A; km8 21:00 BP 128 / 90; Pulse 104; Resp 16 S; Pulse Ox 98% on R/A; km8 21:30 BP 118 / 77; Pulse 106; Resp 16 S; Pulse Ox 96% on R/A; km8 22:00 BP 114 / 74; Pulse 97; Resp 16 S; Pulse Ox 97% on R/A; km8 15:18 Body Mass Index 20.94 (55.34 kg, 162.56 cm) ph 16:53 Pain Scale: Adult kc6 MDM: 15:30 Patient medically screened. snw 17:31 Differential diagnosis: diverticulitis, gastroesophageal reflux disease, non-specific snw abd pain, Ovarian Torsion, pancreatitis, Pyelonephritis, urinary tract infection. Data reviewed: vital signs, nurses notes. Management of patient was discussed with the following: Drainlayer: ru Nathan. I considered the following discharge prescriptions or medication management in the emergency department Medications were administered in the Emergency Department. See MAR. Counseling: I had a detailed discussion with the patient and/or guardian regarding the historical points, exam findings, and any diagnostic results supporting the discharge/admit diagnosis, the presence of at least one elevated blood pressure reading (>120/80) during this emergency department visit, lab results, radiology results, the need for further work-up and treatment in the hospital. 17:32 Post IV fluid administration reassessment for Sepsis: Client prescribed 30 mL/kg IVF. snw Sepsis focused reassessment complete. Neuro: Neurological examination improved from previous exam. Response to treatment: the patient's symptoms have mildly improved after treatment, the patient's symptoms have markedly improved after treatment. 17:43 Management of patient was discussed with the following: Hospitalist: Dr. Negrito horn contacted for admission.. 08/15 15:25 Order name: Blood Culture Adult (2) snw 08/15 15:25 Order name: CBC with Diff; Complete Time: 18:20 snw 08/15 15:25 Order name: CMP; Complete Time: 16:44 snw 08/15 15:25 Order name: Lactate w/ 2H reflex if indic.; Complete Time: 16:38 snw 08/15 15:25 Order name: Protime (+inr); Complete Time: 16:44 snw 08/15 15:25 Order name: Ptt, Activated; Complete Time: 16:44 snw 08/15 15:25 Order name: Urinalysis w/ reflexes; Complete Time: 16:51 snw 08/15 15:27 Order name: UDS; Complete Time: 16:44 snw 08/15 16:53 Order name: Urine Culture EDMS 08/15 18:17 Order name: CBC Smear Scan; Complete Time: 18:20 EDMS 08/15 20:02 Order name: CBC with Automated Diff EDMS 08/15 20:02 Order name: CBC with Automated Diff EDMS 08/15 20:02 Order name: Comprehensive Metabolic Panel EDMS 08/15 20:02 Order name: Comprehensive Metabolic Panel EDMS 08/15 20:07 Order name: Lactate Sepsis 2 HR Follow-up EDMS 08/15 15:25 Order name: Chest Single View XRAY; Complete Time: 17:14 snw 08/15 15:26 Order name: CT Abd/Pelvis - IV Contrast Only; Complete Time: 17:25 snw 08/15 15:25 Order name: EKG; Complete Time: 15:26 snw 08/15 15:25 Order name: Accucheck; Complete Time: 16:07 snw 08/15 15:25 Order name: Cardiac monitoring; Complete Time: 16:07 snw 08/15 15:25 Order name: EKG - Nurse/Tech; Complete Time: 16:07 snw 08/15 15:25 Order name: IV Saline Lock - Large Bore; Complete Time: 16:07 snw 08/15 15:25 Order name: Labs collected and sent; Complete Time: 16:07 snw 08/15 15:25 Order name: O2 Per Protocol; Complete Time: 16:07 snw 08/15 15:25 Order name: O2 Sat Monitoring; Complete Time: 16:07 snw 08/15 15:25 Order name: Vital Signs; Complete Time: 16:07 snw EC: Rate is 101 beats/min. Rhythm is regular. QRS [place] is Normal. [place] interval is normal. snw QRS interval is normal. QT interval is normal. No Q waves. Clinical impression: Sinus tachycardia. Administered Medications: 16:07 Drug: Acetaminophen W[place] Suppository 650 mg W[place] once Route: W[place]; kc6 16:53 Follow up: Response: No adverse reaction; Temperature is decreased [facility] 16:07 Drug: NS 0.9% IV (30 ml/kg) 30 ml/kg IV at bolus once; Sepsis Protocol Route: IV; Rate: kc6 bolus; Site: right wrist; 18:58 Follow up: Response: No adverse reaction; IV Status: Completed infusion; IV Intake: kc6 1000ml 17:21 Drug: Rocephin IV 1 grams IV at calculated rate once; Given slow IV push per pharmacy 6 instructions Route: IV; Rate: calculated rate; Site: right wrist; 18:58 Follow up: Response: No adverse reaction; IV Status: Completed infusion [facility] 19:35 Drug: HYDROmorphone IVP 0.5 mg IVP once Route: IVP; Site: right wrist; km8 20:05 Follow up: Response: No adverse reaction; Pain is decreased; RASS: Alert and Calm (0) 8 19:45 Drug: Potassium Chloride IV 20 mEq IV at calculated rate once; administer over 1-2 km8 hours Route: IV; Rate: calculated rate; Site: right wrist; 22:42 Follow up: IV Status: Completed infusion; IV Intake: 100ml [facility] 22:42 Follow up: Response: No adverse reaction [facility] Disposition Summary: 08/15/23 17:55 Hospitalization Ordered Notes: Hospitalization Status: Inpatient Admission snw Provider: Lior Mahan snw Condition: Stable snw Problem: new snw Symptoms: are unchanged snw Bed/Room Type: Standard snw Location: Telemetry/MedSurg (Inpatient)(08/15/23 22:49) cg Room Assignment: [facility](08/15/23 22:49) cg Diagnosis - Sepsis, unspecified organism snw - Pyelonephritis acute snw Forms: - Medication Reconciliation Form snw - SBAR form snw - Leadership Thank You Letter snw Signatures: Dispatcher [employer] Conchita Hester, GEOCHEMIST-C GEOCHEMIST-Rachellew Julienne Byrd, RN RN ph Maddison Noguera RN RN Cary Ruiz, RN RN kc6 Lindsey Brown RN RN km8 Corrections: (The following items were deleted from the chart) 15:21 15:21 Allergies: Ibuprofen; ph ph 21:34 17:55 Telemetry/MedSurg (Inpatient) snw cg 21:34 17:55 snw cg 22:49 21:34 [facility] ER HOLD cg cg 22:49 21:34 ERHOLD- cg cg
--- NOTE | 2023-08-15 17:55 | ER ---
Nurse's Notes [facility] Name: Sushma Hastings Age: 38 yrs Sex: Female : 1985 Arrival Date: 08/15/2023 Time: 15:01 Bed 4 Private MD: Diagnosis: Sepsis, unspecified organism;Pyelonephritis acute Presentation: 08/15 15:18 Chief complaint: Patient states: Severe epigastric pain, also c/o lower abdominal pain ph that radiates to bilateral lower back, also reports N/V and dark colored stools, temp 103.2 in triage. Coronavirus screen: Vaccine status: Patient reports receiving the 2nd dose of the covid vaccine. Ebola Screen: No symptoms or risks identified at this time. Initial Sepsis Screen: Does the patient meet any 2 criteria? RR > 20 per min. Temp <36.0*C (96.8*F)) or > 38.3*C (100.9*F). HR > 90 bpm. Does the patient have a suspected source of infection? Yes: Acute abdominal pain. Risk Assessment: Do you want to hurt yourself or someone else? Patient reports no desire to harm self or others. Onset of symptoms was August 15, 2023. 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 - Social history:: Smoking status: Patient reports the use of cigarette tobacco products, smokes one-half pack cigarettes per day. Screenin:30 [facility] ED Fall Risk Assessment (Adult) History of falling in the last 3 months, kc6 including since admission No falls in past 3 months (0 pts) Confusion or Disorientation No (0 pts) Intoxicated or Sedated No (0 pts) Impaired Gait No (0 pts) Mobility Assist Device Used No (0 pt) Altered Elimination No (0 pt) Score/Fall Risk Level 0 - 2 = Low Risk. Abuse screen: Denies threats or abuse. Denies injuries from another. Nutritional screening: No deficits noted. Tuberculosis screening: No symptoms or risk factors identified. Assessment: 15:30 General: Appears in no apparent distress. uncomfortable, ill, Behavior is calm, kc6 cooperative, appropriate for age, Reports chills for fever for feeling ill for fatigue for. Pain: Complains of pain in epigastric area Pain radiates to back Pain currently is 10 out of 10 on a pain scale. Neuro: Level of Consciousness is awake, alert, obeys commands, Oriented to person, place, time, situation, Appropriate for age. Cardiovascular: Capillary refill < 3 seconds. Respiratory: Airway is patent Trachea midline Respiratory effort is even, unlabored, Respiratory pattern is regular, symmetrical. GI: Abdomen is flat, non-distended, Bowel sounds present X 4 quads. Abd is soft X 4 quads Abdomen is tender to palpation in epigastric area Reports upper abdominal pain, bloody stool, nausea, vomiting, Patient currently denies diarrhea. : No signs and/or symptoms were reported regarding the genitourinary system. Urine is clear. EENT: No signs and/or symptoms were reported regarding the EENT system. Derm: No signs and/or symptoms reported regarding the dermatologic system. Skin is intact, is healthy with good turgor, Skin is pink, warm \T\ dry. Musculoskeletal: No signs and/or symptoms reported regarding the musculoskeletal system. Circulation, motion, and sensation intact. Capillary refill < 3 seconds, Range of motion: intact in all extremities. 16:30 Reassessment: Patient appears in no apparent distress at this time. No changes from kc6 previously documented assessment. Patient and/or family updated on plan of care and expected duration. Pain level reassessed. Patient is alert, oriented x 3, equal unlabored respirations, skin warm/dry/pink. 17:30 Reassessment: Patient appears in no apparent distress at this time. No changes from kc6 previously documented assessment. Patient and/or family updated on plan of care and expected duration. Pain level reassessed. Patient is alert, oriented x 3, equal unlabored respirations, skin warm/dry/pink. 18:30 Reassessment: Patient appears in no apparent distress at this time. No changes from kc6 previously documented assessment. Patient and/or family updated on plan of care and expected duration. Pain level reassessed. Patient is alert, oriented x 3, equal unlabored respirations, skin warm/dry/pink. 19:35 General: Appears in no apparent distress. Behavior is calm, cooperative, appropriate km8 for age. 19:35 Pain: Complains of pain in abdomen Pain currently is 10 out of 10 on a pain scale. km8 Neuro: Level of Consciousness is awake, alert, obeys commands, Oriented to person, place, time, situation. Cardiovascular: Denies chest pain, shortness of breath, Capillary refill < 3 seconds Patient's skin is warm and dry. Respiratory: Airway is patent Respiratory effort is even, unlabored, Respiratory pattern is regular, symmetrical. GI: Abdomen is non-distended, Reports lower abdominal pain, upper abdominal pain, bloody stool, nausea, Pain is 10 out of 10 on a pain scale. : No signs and/or symptoms were reported regarding the genitourinary system. EENT: No signs and/or symptoms were reported regarding the EENT system. Derm: No signs and/or symptoms reported regarding the dermatologic system. Skin is intact, is healthy with good turgor, Skin is dry, Skin is normal, Skin temperature is warm. Musculoskeletal: No signs and/or symptoms reported regarding the musculoskeletal system. Range of motion: intact in all extremities. 20:58 Reassessment: Patient appears in no apparent distress at this time. Patient and/or km8 family updated on plan of care and expected duration. Pain level reassessed. Patient is alert, oriented x 3, equal unlabored respirations, skin warm/dry/pink. Patient states symptoms have improved. pt reports ABD pain is better 6/10. Vital Signs: 15:18 BP 130 / 87; Pulse 112; Resp 22; Temp 103.2(O); Pulse Ox 97% on R/A; Weight 55.34 kg; ph Height 5 ft. 4 in. ; 16:53 BP 123 / 91; Pulse 95; Resp 18 S; Temp 100.5(O); Pulse Ox 100% on R/A; Pain 10/10; kc6 19:33 BP 126 / 91; Pulse 107; Resp 18; Pulse Ox 99% on R/A; km8 20:00 BP 124 / 92; Pulse 98; Pulse Ox 95% on R/A; km8 20:30 BP 122 / 82; Pulse 96; Pulse Ox 98% on R/A; km8 21:00 BP 128 / 90; Pulse 104; Resp 16 S; Pulse Ox 98% on R/A; km8 21:30 BP 118 / 77; Pulse 106; Resp 16 S; Pulse Ox 96% on R/A; km8 22:00 BP 114 / 74; Pulse 97; Resp 16 S; Pulse Ox 97% on R/A; km8 15:18 Body Mass Index 20.94 (55.34 kg, 162.56 cm) ph 16:53 Pain Scale: Adult kc6 ED Course: 15:02 Patient arrived in ED. rg4 15:17 Conchita Flores FNP-C is PHCP. snw 15:17 Radha Krishnan MD is Attending Physician. snw 15:21 Triage completed. ph 15:21 Arm band placed on. ph 15:28 Cary Ruiz, RN is Primary Nurse. kc6 15:30 Patient has correct armband on for positive identification. Placed in gown. Bed in low kc6 position. Call light in reach. Side rails up X2. Adult w/ patient. Client placed on continuous cardiac and pulse oximetry monitoring. NIBP monitoring applied. house mover on. 16:07 UDS Sent. kc6 16:07 CBC with Diff Sent. kc6 16:07 CMP Sent. kc6 16:07 Lactate w/ 2H reflex if indic. Sent. kc6 16:07 Protime (+inr) Sent. kc6 16:07 Ptt, Activated Sent. kc6 16:07 Urinalysis w/ reflexes Sent. kc6 16:08 Inserted saline lock: 22 gauge in right wrist, using aseptic technique. Blood kc6 collected. Patient maintains SpO2 saturation greater than 95% on room air. 16:32 Chest Single View XRAY In Process Unspecified. EDMS 17:02 CT Abd/Pelvis - IV Contrast Only In Process Unspecified. EDMS 17:54 Lior Mahan MD is Hospitalizing Provider. snw 19:00 Report given to MARGARITO Portillo. kc6 19:10 Primary Nurse role handed off by Cary Ruiz, MARGARITO km8 19:10 Lindsey Brown, MARGARITO is Primary Nurse. km8 22:35 Provided Education on: admission process. km8 22:35 No provider procedures requiring assistance completed. Patient admitted, IV remains in km8 place. 23:04 CBC with Automated Diff Sent. km8 23:04 Comprehensive Metabolic Panel Sent. km8 Administered Medications: 16:07 Drug: Acetaminophen DC Suppository 650 mg DC once Route: DC; kc6 16:53 Follow up: Response: No adverse reaction; Temperature is decreased [facility] 16:07 Drug: NS 0.9% IV (30 ml/kg) 30 ml/kg IV at bolus once; Sepsis Protocol Route: IV; Rate: kc6 bolus; Site: right wrist; 18:58 Follow up: Response: No adverse reaction; IV Status: Completed infusion; IV Intake: kc6 1000ml 17:21 Drug: Rocephin IV 1 grams IV at calculated rate once; Given slow IV push per pharmacy kc6 instructions Route: IV; Rate: calculated rate; Site: right wrist; 18:58 Follow up: Response: No adverse reaction; IV Status: Completed infusion 6 19:35 Drug: HYDROmorphone IVP 0.5 mg IVP once Route: IVP; Site: right wrist; km8 20:05 Follow up: Response: No adverse reaction; Pain is decreased; RASS: Alert and Calm (0) [facility] 19:45 Drug: Potassium Chloride IV 20 mEq IV at calculated rate once; administer over 1-2 km8 hours Route: IV; Rate: calculated rate; Site: right wrist; 22:42 Follow up: IV Status: Completed infusion; IV Intake: 100ml km8 22:42 Follow up: Response: No adverse reaction [facility] Medication: 22:35 VIS not applicable for this client. km8 Intake: 18:58 IV: 1000ml; Total: 1000ml. kc6 22:42 IV: 100ml; Total: 1100ml. 8 Outcome: 17:55 Decision to Hospitalize by Provider. snw 23:23 Admitted to Med/surg accompanied by tech, via wheelchair, room 426, Report called to Lisette Betancourt RN 23:23 Condition: good 23:23 Discharge instructions given to patient, Instructed on the need for admit, Demonstrated understanding of instructions, 23:56 Patient left the ED. [facility] Signatures: Dispatcher [employer] EDConchita King, PRINT SUPPORT SPECIALISTRitu PRINT SUPPORT SPECIALIST-Julienne Bermeo, RN RN ph [place] Kaitlyn, RN RN kc6 Lindsey Brown RN RN km8 Corrections: (The following items were deleted from the chart) 15:21 15:21 Allergies: Ibuprofen; ph ph
[2023-08-15 18:16] LABS: Blood Morphology Comment NOT SEEN (NOT SEEN); Platelet Estimate ADEQ; White Blood Cell Scan OK (OK)
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
[2023-08-15] MEDS ORDERED: HYDROMORPHONE HCL 0.5 MG/0.5 ML INJ ONE (19:45)
[2023-08-15] MEDS ORDERED: KCL 20 MEQ/100 mL IVPB 100 ML IV ONE (19:46)
[2023-08-15] MEDS ORDERED: ONDANSETRON 4 MG/2 ML VIAL IV PRN (19:56)
[2023-08-15] MEDS ORDERED: NA CHLORIDE 0.9% 250 ML ONE (19:56)
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
[2023-08-15 22:02] VITALS: BMI 20.9
[2023-08-15] MEDS: CEFEPIME 1 GM in NA CHLORIDE 0.9% 100 ML IV SCH (23:05)
[2023-08-15] MEDS: NA CHLORIDE 0.9% 1,000 ML IV SCH (23:05)
[2023-08-15] MEDS ORDERED: NA CHLORIDE 0.9% 100 ML ONE (23:05)
[2023-08-15] MEDS ORDERED: CEFEPIME 1 GM/VIAL ONE (23:06)
[2023-08-15] MEDS ORDERED: MORPHINE 2 MG/ML SYR IV ONE (23:48)
[2023-08-16] MEDS ORDERED: MORPHINE 2 MG/ML SYR ONE (00:05)
[2023-08-16] MEDS: ACETAMINOPHEN 325 MG TABLET PO PRN ×4 (01:22→20:31)
[2023-08-16] MEDS ORDERED: VANCOMYCIN 1 GM in NA CHLORIDE 0.9% 250 ML IVPB SCH (05:00)
[2023-08-16] MEDS: NA CHLORIDE 0.9% 1,000 ML IV SCH ×2 (06:00→09:45)
[2023-08-16] MEDS: MORPHINE 2 MG/ML SYR IV PRN ×4 (06:26→20:32)
[2023-08-16 07:30] LABS: Absolute Lymphocytes (CBC) 2.3 K/uL (0.7-4.9); Lymphocytes % 13.7 % (15.3-44.8); MCV 78.9 fL (80-100); MPV 6.6 fL (7.6-11.3); Platelets 146 thou/uL (152-406); RBC Red Blood Cell Count 3.81 M/uL (3.86-4.86)
[2023-08-16 07:51] LABS: Potassium 3.7 mEq/L (3.5-5.1); Protein, Total 6.8 g/dL (6.4-8.2)
[2023-08-16] MEDS ORDERED: INFLUENZA VACCINE (for 6+ mo) 0.5 ML DOSE IMVAC ONE (08:00)
[2023-08-16] MEDS ORDERED: CEFTRIAXONE 1,000 MG in NA CHLORIDE 0.9% 50 ML IVPB SCH (09:00)
[2023-08-16] MEDS: ENOXAPARIN 40 MG/0.4 ML SQ SCH (09:00)
[2023-08-16] MEDS ORDERED: VANCOMYCIN 1.25 GM in NA CHLORIDE 0.9% 250 ML IVPB SCH (09:00)
[2023-08-16] MEDS: CEFEPIME 1 GM in NA CHLORIDE 0.9% 100 ML IV SCH ×2 (09:44→20:31)
--- NOTE | 2023-08-16 14:55 | P.PN ---
Subjective Date of Service: 08/16/23 Chief Complaint: Abdominal pain, pyelonephritis, possible renal abscess No acute events since admission. She reports fevers, dysuria, urinary frequency, and right flank pain. She states that the symptoms have been present for the last 3 days. She denies any chest pain or shortness of breath. Review of Systems 10-point ROS is otherwise unremarkable General: Fever Genitourinary: Dysuria, Frequency, Urgency Musculoskeletal: Back Pain (right flank) Physical Examination - Vital Signs Temperature: 100.9 F Blood Pressure: 127/88 Pulse: 81 Respirations: 16 Pulse Ox (%): 99 - Physical Exam General: Alert, In no apparent distress, Oriented x3 HEENT: Atraumatic, Mucous membr. moist/pink, Sclerae nonicteric Neck: JVD not distended Respiratory: Clear to auscultation bilaterally, Normal air movement Cardiovascular: No edema, Regular rate/rhythm, Normal S1 S2, No gallops, No rubs, No murmurs Gastrointestinal: Normal bowel sounds, Soft and benign, Non-distended, No tenderness, No rebound, No guarding Musculoskeletal: No clubbing, Other (right CVA tenderness noted) Integumentary: No rashes Neurological: Normal speech, Normal affect - Studies Laboratory Data (last 24 hrs) 08/15/23 08/15/23 08/15/23 16:01 16:01 16:01 WBC 18.20 H Hgb 11.2 L Hct 31.9 L Plt Count 168 PT 17.6 H INR 1.60 APTT 32.1 Sodium 133 L Potassium 3.2 L BUN 9 Creatinine 1.06 H Glucose 155 H Total Bilirubin 1.2 H AST 10 L ALT 14 Alkaline Phosphatase 42 L Assessment And Plan - Plan # Severe Sepsis likely secondary to Acute Right Gram-Negative Pyelonephritis with possible Perinephric Abscess She met SIRS criteria based on temperature > 100.9 F, HR > 90 bpm, RR > 20 breaths/min, WBC > 12,000, and the suspected source is pyelonephritis. Severe sepsis is suspected due to concern for tissue hypoperfusion/organ dysfunction based on lactic acid > 2 mmol/L. - Chest x-ray = "no acute abnormalities displayed" - CT abdomen/pelvis = "1.7 centimeter intermediate density structure has developed within the right kidney. This may represent an area of inflammation/infection. Enlargement of the ovaries containing cysts follow-up pelvic ultrasound in 3 months recommended to reevaluate the ovaries" - Urinalysis = 3+ ketones, 3+ blood, 2+ nitrite, 500 leukocyte esterase, > 50 RBCs, > 50 WBCs, 1+ protein - Urine culture = Gram-Negative Rods - Consulted Urology and she was evaluated by Dr. Sheffield - Sepsis order set was initiated - Lactate trend: 2.2 -> 0.8 - Blood cultures drawn - Broad spectrum antibiotics started: Vancomycin + Cefepime - In regards to fluids: - 30 mL/kg of IV Normal Saline was given based on patient's actual body weight # Seizure Disorder # Hypertension # Glaucoma - Reconcile home medications once verified # Bilateral Ovarian Enlargement with Cysts - Noted on CT scan - Will need outpatient follow-up with [facility] Development Professional for serial ultrasound Anthony Crocker M.D.
--- NOTE | 2023-08-16 15:46 | EKG ---
Test Date: 2023-08-15 Test Time: 15:42:28 [employer]: SONAM MEASUREMENT RESULTS: Intervals: Rate: 101 ID: [id number] QRSD: 80 QT: 334 QTc: 433 [place]: P: 51 ID: [id number] QRS: 79 T: 76 INTERPRETIVE STATEMENTS: Sinus tachycardia Otherwise normal ECG Compared to ECG 03/07/2023 23:41:27 Sinus rhythm no longer present Electronically Signed On 08-16-23 15:42:41 CDT by Alex Avila
[2023-08-16] MEDS: VANCOMYCIN 1 GM in NA CHLORIDE 0.9% 250 ML IVPB SCH (18:00)
[2023-08-17] MEDS: MORPHINE 2 MG/ML SYR IV PRN ×4 (00:27→20:10)
[2023-08-17] MEDS: NA CHLORIDE 0.9% 1,000 ML IV SCH ×2 (00:28→14:08)
[2023-08-17] MEDS: VANCOMYCIN 1 GM in NA CHLORIDE 0.9% 250 ML IVPB SCH ×2 (06:15→17:57)
[2023-08-17] MEDS: ACETAMINOPHEN 325 MG TABLET PO PRN ×2 (06:19→20:09)
[2023-08-17 06:46] LABS: Hematocrit 27.9 % (36.0-45.0); Lymphocytes % 16.1 % (15.3-44.8); MCV 79.4 fL (80-100); MPV 7.1 fL (7.6-11.3); Platelets 132 thou/uL (152-406); RBC Red Blood Cell Count 3.52 M/uL (3.86-4.86)
[2023-08-17 06:59] LABS: Potassium 3.5 mEq/L (3.5-5.1)
[2023-08-17] MEDS: ENOXAPARIN 40 MG/0.4 ML SQ SCH (10:06)
[2023-08-17] MEDS: CEFTRIAXONE 1,000 MG in NA CHLORIDE 0.9% 50 ML IVPB SCH (10:14)
--- NOTE | 2023-08-17 15:07 | P.PN ---
Subjective Date of Service: 08/17/23 Chief Complaint: Abdominal pain, pyelonephritis, possible renal abscess No acute events overnight. She states that she feels significantly better. Her dysuria is still present, but improved. He flank pain has resolved. She denies any chills, chest pain, or shortness of breath. Review of Systems 10-point ROS is otherwise unremarkable Genitourinary: Dysuria Physical Examination - Vital Signs Temperature: 97.3 F Blood Pressure: 111/69 Pulse: 75 Respirations: 16 Pulse Ox (%): 99 - Physical Exam General: Alert, In no apparent distress, Oriented x3 HEENT: Atraumatic, Mucous membr. moist/pink, Sclerae nonicteric Respiratory: Clear to auscultation bilaterally, Normal air movement Cardiovascular: No edema, Regular rate/rhythm, No murmurs Gastrointestinal: Normal bowel sounds, Soft and benign, Non-distended, No tenderness, No rebound, No guarding Musculoskeletal: No clubbing Integumentary: No rashes Neurological: Normal speech, Normal affect - Studies Microbiology Data (last 24 hrs): 08/15/23 16:01 Clean Catch Urine [place] Count - Final >100,000 CFU/ML. 08/15/23 16:01 Clean Catch Urine - Final Escherichia Coli Assessment And Plan - Plan # Severe Sepsis likely secondary to Acute Daniel-Sensitive Escherichia Coli Pyelonephritis with possible Perinephric Abscess She met SIRS criteria based on temperature > 100.9 F, HR > 90 bpm, RR > 20 breaths/min, WBC > 12,000, and the suspected source is pyelonephritis. Severe sepsis is suspected due to concern for tissue hypoperfusion/organ dysfunction based on lactic acid > 2 mmol/L. - Chest x-ray = "no acute abnormalities displayed" - CT abdomen/pelvis = "1.7 centimeter intermediate density structure has developed within the right kidney. This may represent an area of inflammation/infection. Enlargement of the ovaries containing cysts follow-up pelvic ultrasound in 3 months recommended to reevaluate the ovaries" - Plan to repeat imaging on 08/19/2023 - if lesion improved/resolved, can consider transitioning to PO antibiotics in anticipation of discharge - Urinalysis = 3+ ketones, 3+ blood, 2+ nitrite, 500 leukocyte esterase, > 50 RBCs, > 50 WBCs, 1+ protein - Urine culture = daniel-sensitive E. Coli - Consulted Urology and she was evaluated by Dr. Sheffield - Sepsis order set was initiated - Lactate trend: 2.2 -> 0.8 - Blood cultures drawn - Broad spectrum antibiotics started: Vancomycin + Cefepime (switched to Ceftriaxone based on sensitivities) - In regards to fluids: - 30 mL/kg of IV Normal Saline was given based on patient's actual body weight # Seizure Disorder # Hypertension # Glaucoma - Reconcile home medications once verified # Bilateral Ovarian Enlargement with Cysts - Noted on CT scan - Will need outpatient follow-up with [facility] for serial ultrasound Anthony Crocker M.D.
[2023-08-18] MEDS: MORPHINE 2 MG/ML SYR IV PRN ×5 (00:25→23:59)
[2023-08-18] MEDS: NA CHLORIDE 0.9% 1,000 ML IV SCH ×3 (00:27→19:52)
[2023-08-18 02:35] VITALS: O2SAT 100
[2023-08-18 06:40] LABS: Absolute Lymphocytes (CBC) 1.6 K/uL (0.7-4.9); Hematocrit 26.1 % (36.0-45.0); Lymphocytes % 21.9 % (15.3-44.8); MCV 78.9 fL (80-100); MPV 7.1 fL (7.6-11.3); Platelets 139 thou/uL (152-406)
[2023-08-18 06:57] LABS: Potassium 3.2 mEq/L (3.5-5.1)
[2023-08-18] MEDS: VANCOMYCIN 1 GM in NA CHLORIDE 0.9% 250 ML IVPB SCH ×3 (07:55→23:59)
[2023-08-18] MEDS: ENOXAPARIN 40 MG/0.4 ML SQ SCH (07:59)
[2023-08-18] MEDS: CEFTRIAXONE 1,000 MG in NA CHLORIDE 0.9% 50 ML IVPB SCH (09:47)
--- NOTE | 2023-08-18 11:39 | P.PN ---
Subjective Date of Service: 08/18/23 Chief Complaint: Abdominal pain, pyelonephritis, possible renal abscess Overnight, she spiked a temperature to 100.6 F. This morning, she states that she feels much better. Other than minimal dysuria, she denies any other symptoms. She denies any chills, chest pain, or shortness of breath. Review of Systems 10-point ROS is otherwise unremarkable Genitourinary: Dysuria (minimal) Physical Examination - Vital Signs Temperature: 99.2 F Blood Pressure: 109/74 Pulse: 76 Respirations: 16 Pulse Ox (%): 96 - Physical Exam General: Alert, In no apparent distress, Oriented x3 HEENT: Atraumatic, Mucous membr. moist/pink, Sclerae nonicteric Respiratory: Clear to auscultation bilaterally, Normal air movement Cardiovascular: No edema, Regular rate/rhythm, No murmurs Gastrointestinal: Normal bowel sounds, Soft and benign, Non-distended, No tenderness Integumentary: No rashes Neurological: Normal speech, Normal affect - Studies Microbiology Data (last 24 hrs): 08/15/23 16:01 Clean Catch Urine [place] Count - Final >100,000 CFU/ML. 08/15/23 16:01 Clean Catch Urine - Final Escherichia Coli Assessment And Plan - Plan # Severe Sepsis likely secondary to Acute Daniel-Sensitive Escherichia Coli Pyelonephritis with possible Perinephric Abscess She met SIRS criteria based on temperature > 100.9 F, HR > 90 bpm, RR > 20 breaths/min, WBC > 12,000, and the suspected source is pyelonephritis. Severe sepsis is suspected due to concern for tissue hypoperfusion/organ dysfunction based on lactic acid > 2 mmol/L. - Chest x-ray = "no acute abnormalities displayed" - CT abdomen/pelvis = "1.7 centimeter intermediate density structure has developed within the right kidney. This may represent an area of inflammation/infection. Enlargement of the ovaries containing cysts follow-up pelvic ultrasound in 3 months recommended to reevaluate the ovaries" - Plan to repeat imaging tomorrow - if lesion improved/resolved, can consider transitioning to PO antibiotics in anticipation of discharge - Urinalysis = 3+ ketones, 3+ blood, 2+ nitrite, 500 leukocyte esterase, > 50 RBCs, > 50 WBCs, 1+ protein - Urine culture = daniel-sensitive E. Coli - Consulted Urology and she was evaluated by Dr. Sheffield - Sepsis order set was initiated - Lactate trend: 2.2 -> 0.8 - Blood cultures drawn - Broad spectrum antibiotics started: Vancomycin + Cefepime (switched to Ceftriaxone based on sensitivities) - In regards to fluids: - 30 mL/kg of IV Normal Saline was given based on patient's actual body weight # Seizure Disorder # Hypertension # Glaucoma - Reconcile home medications once verified # Bilateral Ovarian Enlargement with Cysts - Noted on CT scan - Will need outpatient follow-up with Marketing Clerk for serial ultrasound Anthony Crocker M.D.
--- NOTE | 2023-08-18 18:51 | RAD REPORT ---
EXAM DESCRIPTION: US - Renal Ultrasound-Limited - 08/18/2023 6:29 pm CLINICAL HISTORY: Abdominal pain COMPARISON: CT abdomen August 15, 2023 FINDINGS: Right kidney measures 11 centimeters with a normal echotexture. No hydronephrosis. 6 rito meter cyst. An abscess is not visualized. Left kidney measures 11 centimeters with a normal echotexture. No hydronephrosis IMPRESSION: Renal/perirenal abscess is not seen
[2023-08-19 04:38] LABS: Absolute Lymphocytes (CBC) 2.1 K/uL (0.7-4.9); Hematocrit 25.1 % (36.0-45.0); Lymphocytes % 32.7 % (15.3-44.8); MCV 79.3 fL (80-100); MPV 7.4 fL (7.6-11.3); Platelets 166 thou/uL (152-406); RBC Red Blood Cell Count 3.17 M/uL (3.86-4.86)
[2023-08-19 04:45] LABS: Potassium 3.7 mEq/L (3.5-5.1)
[2023-08-19] MEDS: MORPHINE 2 MG/ML SYR IV PRN ×4 (04:47→20:21)
[2023-08-19] MEDS: NA CHLORIDE 0.9% 1,000 ML IV SCH ×2 (04:48→14:00)
--- NOTE | 2023-08-19 05:37 | P.PN ---
Date of Service: 08/19/23 Subjective: Physical Exam: Vitals: reviewed GEN: Alert, oriented, NAD HEENT: Normal conjunctiva, sclera anicteric CV: Regular rate & rhythm, no edema Pulm: Nonlabored respiraitons, clear bilaterally ABD: Soft, nontender, nondistended MSK: No joint tenderness Integumentary: No rashes Neuro: Normal speech, normal affect Problem List: Severe Sepsis likely secondary to Acute Daniel-Sensitive Escherichia Coli Pyelonephritis with possible Perinephric Abscess Seizure Disorder Hypertension Glaucoma Bilateral Ovarian Enlargement with Cysts Plan: CT abdomen/pelvis(08/15): 1.7cm intermediate density structure has developed within the right kidney. Enlargement of the ovaries containing cysts follow-up pelvic ultrasound in 3 months recommended renal u/s (08/18): : Renal/perirenal abscess is not seen urine cx: daniel-sensitive E. Coli Urology consulted - Dr. Sheffield lactic acid improved blood cx: NGTD Continue vancomycin / rocephin continue IV fluids confirm home medications, restart as appropriate Bilateral Ovarian Enlargement with Cysts incidentally seen on CT abd Will need outpatient follow-up with Issue Clerk for serial ultrasound in ~3 months for further monitoring
[2023-08-19] MEDS: ENOXAPARIN 40 MG/0.4 ML SQ SCH (09:00)
[2023-08-19] MEDS: AMOX/K CLAV 875 MG TAB PO SCH ×2 (09:19→20:23)
[2023-08-19 20:44] VITALS: BP 152/90; TEMP 97.1
== END 2023-08-19 21:44 | disposition home or self-care (01) | DRG 872 ==
LOC: ER 15:01 → ERHOLD 20:23 → 4TH 23:09
PROVIDERS: ADMIT Internal Medicine Nephrology; ATTEND Hospitalist
DX: A41.51 Sepsis due to Escherichia coli [E. coli] (principal); N10 Acute pyelonephritis; R65.20 Severe sepsis without septic shock; I10 Essential (primary) hypertension; H40.9 Unspecified glaucoma; N28.1 Cyst of kidney, acquired; N83.202 Unspecified ovarian cyst, left side; N83.201 Unspecified ovarian cyst, right side; G40.909 Epilepsy, unspecified, not intractable, without status epilepticus; F17.210 Nicotine dependence, cigarettes, uncomplicated; Z88.5 Allergy status to narcotic agent; Z62.810 Personal history of physical and sexual abuse in childhood
CPT/HCPCS: 36415; 71045; 74177; 76775; 80048; 80053; 80202; 80307; 81001; 83605; 85025; 85610; 85730; 87040; 87077; 87086; 87088; 87186; 93005; 96365; 96366; 96367; 96375; 99285; J0692; J0696; J1170; J1650; J2270; J3480; J7030; J7040; J7050; Q9967